=== PATIENT | female | born 1975 | race Caucasian/White ===

== ENCOUNTER 2016-06-28 04:11 | Inpatient (IN) | payer SELFPAY ==
[2016-06-28] VITALS (7 sets, daily range): BP systolic 111–169; BP diastolic 74–108; PULSE 77–111; RESP 16–18; TEMP 96.6–98.9; O2SAT 97–100
[~2016-06-28] VITALS: Ht 152.4 cm; Wt 62.3 kg
[~2016-06-28 04:11] MED LIST: CIPR250T52 PO; PANT40TA3 PO
[2016-06-28] MEDS ORDERED: SODIUM CHLOR 0.9% 1000 ML INJ 1,000 ML IV SCH (05:10)
[2016-06-28] MEDS ORDERED: SODIUM CHLORIDE 0.9% FLUSH 10 ML FLUSH IV FLUSH PRN ×2 (05:15→06:45)
[2016-06-28] MEDS ORDERED: ONDANSETRON HCL 4 MG/2 ML VIAL IVP ONE (05:15)
[2016-06-28] MEDS ORDERED: MORPHINE SULFATE 4 MG/ML INJ IV PUSH ONE (05:15)
[2016-06-28 05:27] LABS: AUTOMATED NEUTROPHIL # 11.7 TH/MM3 (1.8-7.7); BASOPHIL # 0.1 TH/MM3 (0-0.2); BASOPHIL % 0.6 % (0.0-2.0); EOSINOPHIL # 0.2 TH/MM3 (0-0.4); EOSINOPHIL % 1.5 % (0.0-4.0); HEMATOCRIT 37.8 % (35.0-46.0); HEMO FLAGS DIFF FINAL; LYMPH % 10.7 % (9.0-44.0); LYMPHOCYTE # 1.5 TH/MM3 (1.0-4.8); MEAN CELL VOLUME 91.6 FL (80.0-100.0); MEAN CORPUSCULAR HEMOGLOBIN 32.1 PG (27.0-34.0); MEAN CORPUSCULAR HGB CONC 35.1 % (32.0-36.0); NEUT % 81.2 % (16.0-70.0); PLATELET COUNT 389 TH/MM3 (150-450); RED BLOOD COUNT 4.13 MIL/MM3 (4.00-5.30); RED CELL DISTRIBUTION WIDTH 14.4 % (11.6-17.2); WHITE BLOOD COUNT 14.4 TH/MM3 (4.0-11.0)
[2016-06-28 05:48] LABS: APTT (PATIENT) 25.4 SEC (24.3-30.1); PROTHROMBIN TIME - PATIENT 11.4 SEC (9.8-11.6)
[2016-06-28 05:58] LABS: ALT (GPT) 20 U/L (10-53); ANION GAP 11 MEQ/L (5-15); AST (GOT) 18 U/L (15-37); BLOOD UREA NITROGEN 6 MG/DL (7-18); CHLORIDE 103 MEQ/L (98-107); GLOMERULAR FILTRATION RATE 98 ML/MIN (>89); POTASSIUM 3.5 MEQ/L (3.5-5.1); SODIUM (NA) 139 MEQ/L (136-145)
[2016-06-28 06:03] LABS: ALKALINE PHOSPHATASE 84 U/L (45-117); BETA HCG QUANT LESS THAN 1 MIU/ML (0-5); TOTAL BILIRUBIN ADULT 0.5 MG/DL (0.2-1.0)
[2016-06-28 06:05] LABS: CREATINE KINASE 71 U/L (26-192)
--- NOTE | 2016-06-28 06:05 | PD ---
HPI Chief Complaint: Abdominal Pain Time Seen by Provider: 04:59 Travel History International Travel<30 days: No Contact w/Intl Traveler<30days: No Traveled to known affect area: No History of Present Illness HPI 40-year-old female here for evaluation of epigastric abdominal pain. The patient reports history of pancreatitis and states that this feels similar. Pain started yesterday, is epigastric, radiates to her back. Pain was initially more constant, now is intermittent, slightly worse with movement and palpation. She describes the pain as an ache/feeling as though someone is punching her in her abdomen. Pain sort of radiates into her anterior chest. She drinks about 4-6 shots of whiskey daily and smokes cigarettes daily. She denies any known history of cardiac disease. She has felt nauseous but has not vomited. She has had loose bowel movements. No history of abdominal surgeries. No urinary symptoms. PFSH Past Medical History Anxiety: Yes Depression: Yes Heart Rhythm Problems: No Cancer: No Cardiovascular Problems: Yes High Cholesterol: No Chest Pain: Yes Congestive Heart Failure: No Diminished Hearing: No Endocrine: No GERD: Yes Genitourinary: No Hiatal Hernia: No Immune Disorder: No Musculoskeletal: No Neurologic: No Psychiatric: Yes Reproductive: No Respiratory: No Pancreatitis: Yes Ulcer: No Tetanus Vaccination: Unknown ?: Not LMP: 06/06/16 Past Surgical History Surgical History: No Previous Surgery Other Surgery: No Social History Alcohol Use: Yes (6-7 shots daily) Tobacco Use: Yes (1/2 PPD ) Substance Use: No Allergies-Medications (Allergen,Severity, Reaction): Coded Allergies: No Known Allergies (Unverified , 06/28/16) Reported Meds & Prescriptions Reported Meds & Active Scripts Active Cipro (Ciprofloxacin HCl) 250 Mg Tab 250 Mg PO BID 3 Days Pantoprazole (Pantoprazole Sodium) 40 Mg Tab 40 Mg PO DAILY 30 Days Review of Systems Except as stated in HPI: all other systems reviewed are Neg Physical Exam Narrative GENERAL: Well-developed, well-nourished, comfortable, no acute distress. SKIN: Focused skin assessment warm/dry. HEAD: Atraumatic. Normocephalic. EYES: Pupils equal and round. No scleral icterus. No injection or drainage. ENT: Mucous membranes pink and moist. NECK: Trachea midline. No JVD. CARDIOVASCULAR: Regular rate and rhythm. No murmur appreciated. RESPIRATORY: No accessory muscle use. Clear to auscultation. Breath sounds equal bilaterally. GASTROINTESTINAL: Abdomen soft, nondistended. Moderate epigastric tenderness without peritoneal signs. Rest of abdomen is mildly tender without peritoneal signs. Normal bowel sounds. No hernias. MUSCULOSKELETAL: No obvious deformities. No clubbing. No cyanosis. No edema. NEUROLOGICAL: Awake and alert. No obvious cranial nerve deficits. Motor grossly within normal limits. Normal speech. PSYCHIATRIC: Appropriate mood and affect; insight and judgment normal. Data Data Last Documented VS Vital Signs Date Time Temp Pulse Resp B/P Pulse Ox O2 Delivery O2 Flow Rate FiO2 06/28/16 06:28 16 06/28/16 04:22 98.5 111 166/108 100 Room Air Orders Beta Hcg (Quant/Titer) (06/28/16 05:10) Complete Blood Count With Diff (06/28/16 05:10) Comprehensive Metabolic Panel (06/28/16 05:10) Lipase (06/28/16 05:10) Prothrombin Time / Inr (Pt) (06/28/16 05:10) Act Partial Throm Time (Ptt) (06/28/16 05:10) Urinalysis - C+S If Indicated (06/28/16 05:10) Iv Access Insert/Monitor (06/28/16 05:10) Ecg Monitoring (06/28/16 05:10) Oximetry (06/28/16 05:10) Morphine Inj (Morphine Inj) (06/28/16 05:15) Ondansetron Inj (Zofran Inj) (06/28/16 05:15) Sodium Chlor 0.9% 1000 Ml Inj (Ns 1000 M (06/28/16 05:10) Sodium Chloride 0.9% Flush (Ns Flush) (06/28/16 05:15) Electrocardiogram (06/28/16 05:10) Ckmb (Isoenzyme) Profile (06/28/16 05:10) Troponin I (06/28/16 05:10) Sodium Chlor 0.9% 1000 Ml Inj (Ns 1000 M (06/28/16 06:30) Admit To Inpatient (06/28/16 ) Vital Signs (Adult) Q4H (06/28/16 06:36) Activity Oob With Assistance (06/28/16 06:36) Supervisor Electron Tube Processing / Telemetry .CONTINUOUS (06/28/16 06:36) Diet Clear Liquid (06/28/16 Breakfast) Sodium Chlor 0.9% 1000 Ml Inj (Ns 1000 M (06/28/16 06:36) Sodium Chloride 0.9% Flush (Ns Flush) (06/28/16 06:45) Sodium Chloride 0.9% Flush (Ns Flush) (06/28/16 09:00) Ondansetron Inj (Zofran Inj) (06/28/16 06:45) Comprehensive Metabolic Panel (06/29/16 06:00) Complete Blood Count With Diff (06/29/16 06:00) Lipase (06/29/16 06:00) Naloxone Inj (Narcan Inj) (06/28/16 06:45) Inpatient Certification (06/28/16 ) Labs Laboratory Tests Test 06/28/16 06/28/16 05:15 05:45 White Blood Count 14.4 TH/MM3 Red Blood Count 4.13 MIL/MM3 Hemoglobin 13.3 GM/DL Hematocrit 37.8 % Mean Corpuscular Volume 91.6 FL Mean Corpuscular Hemoglobin 32.1 PG Mean Corpuscular Hemoglobin 35.1 % Concent Red Cell Distribution Width 14.4 % Platelet Count 389 TH/MM3 Mean Platelet Volume 7.2 FL Neutrophils (%) (Auto) 81.2 % Lymphocytes (%) (Auto) 10.7 % Monocytes (%) (Auto) 6.0 % Eosinophils (%) (Auto) 1.5 % Basophils (%) (Auto) 0.6 % Neutrophils # (Auto) 11.7 TH/MM3 Lymphocytes # (Auto) 1.5 TH/MM3 Monocytes # (Auto) 0.9 TH/MM3 Eosinophils # (Auto) 0.2 TH/MM3 Basophils # (Auto) 0.1 TH/MM3 CBC Comment DIFF FINAL Differential Comment Prothrombin Time 11.4 SEC Prothromb Time International 1.0 RATIO Ratio Activated Partial 25.4 SEC Thromboplast Time Sodium Level 139 MEQ/L Potassium Level 3.5 MEQ/L Chloride Level 103 MEQ/L Carbon Dioxide Level 25.0 MEQ/L Anion Gap 11 MEQ/L Blood Urea Nitrogen 6 MG/DL Creatinine 0.67 MG/DL Estimat Glomerular Filtration 98 ML/MIN Rate Random Glucose 98 MG/DL Calcium Level 8.7 MG/DL Total Bilirubin 0.5 MG/DL Aspartate Amino Transf 18 U/L (AST/SGOT) Alanine Aminotransferase 20 U/L (ALT/SGPT) Alkaline Phosphatase 84 U/L Total Creatine Kinase 71 U/L Troponin I LESS THAN 0.02 NG/ML Total Protein 7.6 GM/DL Albumin 3.9 GM/DL Lipase 5308 U/L Human Chorionic Gonadotropin, LESS THAN 1 Quant MIU/ML Urine Color LIGHT-YELLOW Urine Turbidity CLEAR Urine pH 6.0 Urine Specific [place] 1.006 Urine Protein NEG mg/dL Urine Glucose (UA) NEG mg/dL Urine Ketones NEG mg/dL Urine Occult Blood SMALL Urine Nitrite NEG Urine Bilirubin NEG Urine Urobilinogen LESS THAN 2.0 MG/DL Urine Leukocyte Esterase SMALL Urine RBC 4 /hpf Urine WBC 3 /hpf Urine Squamous Epithelial 2 /hpf Cells Urine Bacteria RARE /hpf Microscopic Urinalysis Comment CULT NOT INDICATED MDM Medical Decision Making Medical Screen Exam Complete: Yes Emergency Medical Condition: Yes Differential Diagnosis Pancreatitis, hepatobiliary disease, gastritis, peptic ulcer disease, ACS Narrative Course Vital signs reviewed. CBC is remarkable for WBC 14.4 with 81% neutrophils. CMP is unremarkable. Cardiac enzymes are negative. Beta hCG is negative. Lipase is 5308. UA is not suggestive of UTI. EKG shows no signs of ischemia. The patient was given 2 L normal saline IV and IV pain medication. She is resting comfortably. She was made aware of all findings. She will be admitted for further treatment and evaluation of acute pancreatitis which is likely secondary to alcohol abuse. Case discussed with hospitalist Dr. Godoy who will admit the patient to her service. Diagnosis Primary Impression: Pancreatitis, acute Qualified Code: K85.20 - Alcohol-induced acute pancreatitis, unspecified complication status Additional Impression: Alcohol abuse Admitting Information Admitting Physician Requests: Admit Anand Caery MD June 28, 2016 06:05
[2016-06-28 06:18] LABS: BACTERIA, URINE RARE /hpf; BLOOD, URINE SMALL (NEG); GLUCOSE,URINE NEG (NEG); KETONE, URINE NEG (NEG); NITRITE,URINE NEG (NEG); SQUAMOUS EPITHELIAL CELL URINE 2 /hpf (0-5); URINE COLOR LIGHT-YELLOW (YELLW/STRAW)
[2016-06-28 06:19] LABS: COMMENT (UR) CULT NOT INDICATED; CULTURE IF INDICATED CULT NOT INDICATED
[2016-06-28] MEDS ORDERED: SODIUM CHLOR 0.9% 1000 ML INJ 1,000 ML IV ONE (06:30)
[2016-06-28] MEDS ORDERED: ONDANSETRON HCL 4 MG/2 ML VIAL IVP PRN (06:45)
[2016-06-28] MEDS ORDERED: NALOXONE HCL 0.4 MG/ML AMP IV PRN (06:45)
--- NOTE | 2016-06-28 06:55 | HHI.HP ---
[facility] Service [place] [facility] Primary Care Physician Unknown Admission Diagnosis acute pancreatitis Diagnoses: Chief Complaint: Abdominal pain Travel History International Travel<30 Days: No Contact w/Intl Traveler <30 Da: No Traveled to Known Affected Are: No History of Present Illness History from patient, ER physician communication, and review of medical records. Patient reported that she came to the hospital because she was having midepigastric pain radiating to the back it started about 2 days ago. She reports that she had to leave work earlier yesterday because of this. She reports associated nausea and vomited once or twice. Also reports of diarrhea throughout the week at least 10-12 times a day. Diarrhea is greenish in color. Denies recent antibiotic use. Denies fever. However reports of some night sweats. Denies any burning urination or pain on urination. Patient denies any hematemesis/hematochezia/melena. Denies any chest pain/shortness of breath/focal weakness. patient is known to me from her prior hospitalization. She presented similarly at that time as well with chronic diarrhea. Her stool studies were negative then. The patient was managed at that time for acute pancreatitis. Patient admits that she is still drinking about 6 whiskeys a night. Review of Systems Except as stated in HPI: all other systems reviewed are Neg Past Family Social History Past Medical History pancreatitis Past Surgical History no surgery Allergies: Coded Allergies: No Known Allergies (Unverified , 06/28/16) Family History grandfather - cirrhosis of liver Social History smokes less than 10 cigarrettes a day drinks 6 whiskys a day Physical Exam Vital Signs Vital Signs Date Time Temp Pulse Resp B/P Pulse Ox O2 Delivery O2 Flow Rate FiO2 06/28/16 06:28 16 06/28/16 04:22 98.5 111 16 166/108 100 Room Air Physical Exam GENERAL: This is a well-nourished, well-developed patient, in no apparent distress. SKIN: No rashes, ecchymoses or lesions. Cool and dry. HEAD: Atraumatic. Normocephalic. No temporal or scalp tenderness. EYES: No scleral icterus. No injection or drainage. ENT: Nose without bleeding, purulent drainage or septal hematoma. Airway patent. NECK: Trachea midline. No JVD. Supple, nontender, no meningeal signs. CARDIOVASCULAR: Regular rate and rhythm without murmurs, gallops, or rubs. RESPIRATORY: Clear to auscultation. Breath sounds equal bilaterally. No wheezes , rales, or rhonchi. GASTROINTESTINAL: Abdomen soft, tenderness at mid epigastrium, nondistended.No guarding. MUSCULOSKELETAL: Extremities without clubbing, cyanosis, or edema.No calf tenderness. NEUROLOGICAL: Awake and alert. Motor and sensory grossly within normal limits. Normal speech. Laboratory Laboratory Tests Test 06/28/16 06/28/16 05:15 05:45 White Blood Count 14.4 Red Blood Count 4.13 Hemoglobin 13.3 Hematocrit 37.8 Mean Corpuscular Volume 91.6 Mean Corpuscular Hemoglobin 32.1 Mean Corpuscular Hemoglobin 35.1 Concent Red Cell Distribution Width 14.4 Platelet Count 389 Mean Platelet Volume 7.2 Neutrophils (%) (Auto) 81.2 Lymphocytes (%) (Auto) 10.7 Monocytes (%) (Auto) 6.0 Eosinophils (%) (Auto) 1.5 Basophils (%) (Auto) 0.6 Neutrophils # (Auto) 11.7 Lymphocytes # (Auto) 1.5 Monocytes # (Auto) 0.9 Eosinophils # (Auto) 0.2 Basophils # (Auto) 0.1 CBC Comment DIFF FINAL Differential Comment Prothrombin Time 11.4 Prothromb Time International 1.0 Ratio Activated Partial 25.4 Thromboplast Time Sodium Level 139 Potassium Level 3.5 Chloride Level 103 Carbon Dioxide Level 25.0 Anion Gap 11 Blood Urea Nitrogen 6 Creatinine 0.67 Estimat Glomerular Filtration 98 Rate Random Glucose 98 Calcium Level 8.7 Total Bilirubin 0.5 Aspartate Amino Transf 18 (AST/SGOT) Alanine Aminotransferase 20 (ALT/SGPT) Alkaline Phosphatase 84 Total Creatine Kinase 71 Troponin I LESS THAN 0.02 Total Protein 7.6 Albumin 3.9 Lipase 5308 Human Chorionic Gonadotropin, LESS THAN 1 Quant Urine Color LIGHT-YELLOW Urine Turbidity CLEAR Urine pH 6.0 Urine Specific [place] 1.006 Urine Protein NEG Urine Glucose (UA) NEG Urine Ketones NEG Urine Occult Blood SMALL Urine Nitrite NEG Urine Bilirubin NEG Urine Urobilinogen LESS THAN 2.0 Urine Leukocyte Esterase SMALL Urine RBC 4 Urine WBC 3 Urine Squamous Epithelial 2 Cells Urine Bacteria RARE Microscopic Urinalysis Comment CULT NOT INDICATED Result Diagram: 06/28/1651406/28/16514 Assessment and Plan Assessment and Plan Impression: Acute pancreatitis Nausea/vomiting/diarrheaall secondary to pancreatitis EtOH abuse Elevated blood pressuresecondary to pain/withdrawal Plan: Aggressive IV hydration. Clear liquid diet. Pain control. Nausea control. We'll monitor for episodes of nausea/vomiting/diarrhea. Ativan 1 mg IV every 2 hours when necessary for withdrawal symptoms. Started on Librium 25 mg by mouth every 8 hours. DVT prophylaxiswith SCD. GI prophylaxis on pantoprazole. Physician Certification 2 Midnight Certification Type: Admission for Inpatient Services Order for Inpatient Services The services are ordered in accordance with Medicare regulations or non- Medicare payer requirements, as applicable. In the case of services not specified as inpatient-only, they are appropriately provided as inpatient services in accordance with the 2-midnight benchmark. Estimated LOS (days): 2 days is the estimated time the patient will need to remain in the hospital, assuming treatment plan goals are met and no additional complications. Post-Hospital Plan: Home Maria M Godoy MD June 28, 2016 06:55
[2016-06-28] MEDS ORDERED: LORazepam 2 MG/ML VIAL IV PUSH PRN (07:30)
[2016-06-28] MEDS: PANTOPRAZOLE SOD 40 MG DELAYED RELEASE TAB PO SCH (11:11)
[2016-06-28] MEDS: THIAMINE HCL 100 MG TAB PO SCH (11:11)
[2016-06-28] MEDS: chlordiazePOXIDE 25 MG CAP PO SCH ×3 (11:11→20:13)
[2016-06-28] MEDS: SODIUM CHLORIDE 0.9% FLUSH 10 ML FLUSH IV FLUSH SCH ×2 (11:12→20:13)
[2016-06-28] MEDS: MORPHINE SULFATE 4 MG/ML INJ IV PUSH PRN ×3 (11:21→20:13)
--- NOTE | 2016-06-28 18:32 | EKG ---
Date Performed: 06/28/2016 Time Performed: 05:19:19 PTAGE: 40 years EKG: Sinus rhythm NORMAL ECG Compared to prior tracing no significant change PREVIOUS TRACING : 12/24/2015 20.21 DOCTOR: Domingo Astudillo Interpretating Date/Time 06/28/2016 18:28:20
[2016-06-28] MEDS: SODIUM CHLOR 0.9% 1000 ML INJ 1,000 ML IV SCH (23:01)
[2016-06-29] VITALS: BP 109/62; PULSE 81; RESP 18; TEMP 98.1; O2SAT 97
[2016-06-29 04:00] VITALS: BP 113/70; PULSE 80; RESP 18; TEMP 97.3; O2SAT 97
[2016-06-29] MEDS: chlordiazePOXIDE 25 MG CAP PO SCH ×3 (04:57→21:53)
[2016-06-29 06:09] LABS: AUTOMATED NEUTROPHIL # 4.7 TH/MM3 (1.8-7.7); BASOPHIL % 0.7 % (0.0-2.0); EOSINOPHIL # 0.3 TH/MM3 (0-0.4); HEMATOCRIT 33.2 % (35.0-46.0); HEMO FLAGS DIFF FINAL; LYMPH % 20.6 % (9.0-44.0); LYMPHOCYTE # 1.5 TH/MM3 (1.0-4.8); MEAN CELL VOLUME 92.2 FL (80.0-100.0); MEAN CORPUSCULAR HEMOGLOBIN 31.6 PG (27.0-34.0); MEAN CORPUSCULAR HGB CONC 34.2 % (32.0-36.0); MONO % 8.4 % (0.0-8.0); NEUT % 66.3 % (16.0-70.0); PLATELET COUNT 325 TH/MM3 (150-450); RED CELL DISTRIBUTION WIDTH 14.4 % (11.6-17.2); WHITE BLOOD COUNT 7.2 TH/MM3 (4.0-11.0)
[2016-06-29 06:36] LABS: ALKALINE PHOSPHATASE 71 U/L (45-117); ALT (GPT) 14 U/L (10-53); ANION GAP 8 MEQ/L (5-15); AST (GOT) 16 U/L (15-37); BICARBONATE 26.1 MEQ/L (21.0-32.0); BLOOD UREA NITROGEN 3 MG/DL (7-18); CHLORIDE 106 MEQ/L (98-107); GLOMERULAR FILTRATION RATE 141 ML/MIN (>89); SODIUM (NA) 140 MEQ/L (136-145); TOTAL BILIRUBIN ADULT 0.9 MG/DL (0.2-1.0)
[2016-06-29 06:43] LABS: POTASSIUM 2.8 MEQ/L (3.5-5.1)
[2016-06-29 08:00] VITALS: BP 117/73; PULSE 83; RESP 16; TEMP 97.5; O2SAT 99
[2016-06-29] MEDS: THIAMINE HCL 100 MG TAB PO SCH (08:14)
[2016-06-29] MEDS: PANTOPRAZOLE SOD 40 MG DELAYED RELEASE TAB PO SCH (08:14)
[2016-06-29] MEDS: SODIUM CHLORIDE 0.9% FLUSH 10 ML FLUSH IV FLUSH SCH ×2 (08:14→21:53)
[2016-06-29] MEDS: POTASSIUM CHLOR 20 MEQ PREMIX 100 ML IV SCH ×2 (08:21→12:30)
[2016-06-29] MEDS: MORPHINE SULFATE 4 MG/ML INJ IV PUSH PRN (08:30)
--- NOTE | 2016-06-29 08:58 | HHI.PR ---
Subjective Remarks This is a pleasant 40 y/o Female who came to ER with Abdominal pain, found Acute Pancreatitis, Improving and tolerating diet, has Hypokalemia replacing and following. brief support given about her Alcohol abuse and dependence. Objective Vital Signs Date Time Temp Pulse Resp B/P Pulse Ox O2 Delivery O2 Flow Rate FiO2 06/29/16 08:00 97.5 83 16 117/73 99 06/29/16 04:00 97.3 80 18 113/70 97 06/29/16 00:00 98.1 81 18 109/62 97 06/28/16 22:00 77 06/28/16 20:00 98.9 77 18 111/74 97 06/28/16 16:00 96.9 84 17 128/78 99 06/28/16 12:00 96.6 82 17 137/90 97 06/28/16 09:00 97.7 87 16 98 I/O 06/28/16 06/28/16 06/28/16 06/29/16 06/29/16 06/29/16 07:00 15:00 23:00 07:00 15:00 23:00 Intake Total 120 ml 752 ml 1061 ml Output Total 1200 ml Balance 120 ml 752 ml -139 ml Intake Oral 120 ml 320 ml 480 ml IV Total 432 ml 581 ml Output Urine Total 1200 ml # Voids 1 1 # Bowel Movements 0 0 0 Result Diagram: 06/29/16 0548 06/29/16 0548 Imaging No New Imaging studies performed. Procedures No procedures performed. Other Results Laboratory Tests Test 06/28/16 06/28/16 06/29/16 05:15 05:45 05:48 Prothrombin Time 11.4 SEC Prothromb Time International 1.0 RATIO Ratio Activated Partial 25.4 SEC Thromboplast Time Total Creatine Kinase 71 U/L Troponin I LESS THAN 0.02 NG/ML Human Chorionic Gonadotropin, LESS THAN 1 Quant MIU/ML Urine Color LIGHT-YELLOW Urine Turbidity CLEAR Urine pH 6.0 Urine Specific [place] 1.006 Urine Protein NEG mg/dL Urine Glucose (UA) NEG mg/dL Urine Ketones NEG mg/dL Urine Occult Blood SMALL Urine Nitrite NEG Urine Bilirubin NEG Urine Urobilinogen LESS THAN 2.0 MG/DL Urine Leukocyte Esterase SMALL Urine RBC 4 /hpf Urine WBC 3 /hpf Urine Squamous Epithelial 2 /hpf Cells Urine Bacteria RARE /hpf Microscopic Urinalysis Comment CULT NOT INDICATED White Blood Count 7.2 TH/MM3 Red Blood Count 3.60 MIL/MM3 Hemoglobin 11.4 GM/DL Hematocrit 33.2 % Mean Corpuscular Volume 92.2 FL Mean Corpuscular Hemoglobin 31.6 PG Mean Corpuscular Hemoglobin 34.2 % Concent Red Cell Distribution Width 14.4 % Platelet Count 325 TH/MM3 Mean Platelet Volume 7.2 FL Neutrophils (%) (Auto) 66.3 % Lymphocytes (%) (Auto) 20.6 % Monocytes (%) (Auto) 8.4 % Eosinophils (%) (Auto) 4.0 % Basophils (%) (Auto) 0.7 % Neutrophils # (Auto) 4.7 TH/MM3 Lymphocytes # (Auto) 1.5 TH/MM3 Monocytes # (Auto) 0.6 TH/MM3 Eosinophils # (Auto) 0.3 TH/MM3 Basophils # (Auto) 0.0 TH/MM3 CBC Comment DIFF FINAL Differential Comment Sodium Level 140 MEQ/L Potassium Level 2.8 MEQ/L Chloride Level 106 MEQ/L Carbon Dioxide Level 26.1 MEQ/L Anion Gap 8 MEQ/L Blood Urea Nitrogen 3 MG/DL Creatinine 0.49 MG/DL Estimat Glomerular Filtration 141 ML/MIN Rate Random Glucose 88 MG/DL Calcium Level 7.5 MG/DL Total Bilirubin 0.9 MG/DL Aspartate Amino Transf 16 U/L (AST/SGOT) Alanine Aminotransferase 14 U/L (ALT/SGPT) Alkaline Phosphatase 71 U/L Total Protein 6.2 GM/DL Albumin 3.0 GM/DL Lipase 278 U/L Objective Remarks GENERAL: This is a well-nourished, well-developed patient, in no apparent distress. SKIN: No rashes, ecchymoses or lesions. Cool and dry. HEAD: Atraumatic. Normocephalic. No temporal or scalp tenderness. EYES: No scleral icterus. No injection or drainage. ENT: Nose without bleeding, purulent drainage or septal hematoma. Airway patent. NECK: Trachea midline. No JVD. Supple, nontender, no meningeal signs. CARDIOVASCULAR: Regular rate and rhythm without murmurs, gallops, or rubs. RESPIRATORY: Clear to auscultation. Breath sounds equal bilaterally. No wheezes , rales, or rhonchi. GASTROINTESTINAL: Abdomen soft, tenderness at mid epigastrium, nondistended.No guarding. MUSCULOSKELETAL: Extremities without clubbing, cyanosis, or edema.No calf tenderness. NEUROLOGICAL: Awake and alert. Motor and sensory grossly within normal limits. Normal speech. Medications and IVs Current Medications Medications (Trade) Dose Ordered Sig/[place] Route Start Time Stop Time Status Last Admin Sodium Chloride 2 ml 2 ml UNSCH PRN IV FLUSH 06/28/16 05:15 (NS 1000 ml Inj) 1,000 ml @ 100 mls/hr Q10H IV 06/28/16 07:00 06/28/16 23:01 (NS Flush) 2 ml UNSCH PRN IV FLUSH 06/28/16 06:45 (NS Flush) 2 ml BID IV FLUSH 06/28/16 09:00 06/29/16 08:14 (Zofran Inj) 4 mg Q6H PRN IVP 06/28/16 06:45 (Narcan Inj) 0.4 mg UNSCH PRN IV 06/28/16 06:45 (Morphine Inj) 2 mg Q3H PRN IV PUSH 06/28/16 06:45 06/29/16 08:30 (Vitamin B1) 100 mg DAILY PO 06/28/16 09:00 06/29/16 08:14 (Ativan Inj) 1 mg Q2H PRN IV PUSH 06/28/16 07:30 (Protonix) 40 mg DAILY PO 06/28/16 09:00 06/29/16 08:14 Chlordiazepoxide 25 mg 25 mg Q8HR PO 06/28/16 22:00 06/29/16 04:57 (KCl 20 Meq Premix Inj) 100 ml @ 50 mls/hr Q2H IV 06/29/16 08:00 06/29/16 11:59 06/29/16 08:21 A/P Assessment and Plan 1. Acute Pancreatitis and Intractable Nausea, vomit and Diarrhea secondary to EtOH abuse Improved. 2. Alcohol abuse on CIWA protocol. no signs of withdrawal 3. Electrolyte derangement replacing, DVT prophylaxiswith SCD. GI prophylaxis on pantoprazole. Discharge Planning Expected later today or in am tomorrow. Andrez Cm MD June 29, 2016 08:58
[2016-06-29 11:47] LABS: MAGNESIUM 1.6 MG/DL (1.5-2.5)
[2016-06-29 12:00] VITALS: BP 134/81; PULSE 80; RESP 13; TEMP 98.1; O2SAT 99
[2016-06-29] MEDS: SODIUM CHLOR 0.9% 1000 ML INJ 1,000 ML IV SCH ×2 (13:00→21:53)
[2016-06-29] MEDS: MAGNESIUM SULFATE 1 GM PREMIX 100 ML IV SCH ×2 (13:30→13:53)
[2016-06-29 16:00] VITALS: BP 98/57; PULSE 90; RESP 16; TEMP 97.9; O2SAT 97
[2016-06-29 20:00] VITALS: BP 105/61; PULSE 92; PULSE 94; RESP 20; TEMP 97.2; O2SAT 99
[2016-06-29] MEDS: ACETAMINOPHEN/HYDROcodone 325 MG/5 MG TAB PO PRN (21:54)
[2016-06-30] VITALS: BP 116/70; PULSE 88; RESP 18; TEMP 98; O2SAT 100
[2016-06-30 04:00] VITALS: BP 110/68; PULSE 84; RESP 20; TEMP 97.8; O2SAT 98
[2016-06-30] MEDS: chlordiazePOXIDE 25 MG CAP PO SCH (04:56)
[2016-06-30 08:00] VITALS: BP 149/92; PULSE 77; RESP 17; TEMP 97.2; O2SAT 99
[2016-06-30] MEDS: PANTOPRAZOLE SOD 40 MG DELAYED RELEASE TAB PO SCH (09:00)
[2016-06-30] MEDS: THIAMINE HCL 100 MG TAB PO SCH (09:00)
--- NOTE | 2016-06-30 09:19 | HHI.PR ---
Subjective Remarks This is a pleasant 40 y/o Female who came to ER with Abdominal pain, found Acute Pancreatitis, Improving and tolerating diet, has Hypokalemia replacing and following. brief support given about her Alcohol abuse and dependence. 06/30: No Nausea, vomit or diarrhea, stable, ready for discharge will replace her Potassium level again discussed about her lifestyle. she agree to start taking care of her. Objective Vital Signs Date Time Temp Pulse Resp B/P Pulse Ox O2 Delivery O2 Flow Rate FiO2 06/30/16 08:00 97.2 77 17 149/92 99 06/30/16 04:00 97.8 84 20 110/68 98 06/30/16 00:00 98.0 88 18 116/70 100 06/29/16 20:00 94 06/29/16 20:00 97.2 92 20 105/61 99 06/29/16 16:00 97.9 90 16 98/57 97 06/29/16 12:00 98.1 80 13 134/81 99 I/O 06/29/16 06/29/16 06/29/16 06/30/16 06/30/16 06/30/16 07:00 15:00 23:00 07:00 15:00 23:00 Intake Total 1061 ml 600 ml 758 ml 995 ml Output Total 1200 ml 640 ml Balance -139 ml 600 ml 758 ml 355 ml Intake Oral 480 ml 600 ml 240 ml IV Total 581 ml 758 ml 755 ml Output Urine Total 1200 ml 640 ml # Voids 5 # Bowel Movements 0 0 0 Result Diagram: 06/29/16 0548 06/29/16 1742 Imaging No Imaging studies performed. Procedures No procedures performed. Other Results Laboratory Tests Test 06/28/16 06/28/16 06/29/16 06/29/16 05:15 05:45 05:48 17:42 Prothrombin Time 11.4 SEC Prothromb Time International 1.0 RATIO Ratio Activated Partial 25.4 SEC Thromboplast Time Total Creatine Kinase 71 U/L Troponin I LESS THAN 0.02 NG/ML Human Chorionic Gonadotropin, LESS THAN 1 Quant MIU/ML Urine Color LIGHT-YELLOW Urine Turbidity CLEAR Urine pH 6.0 Urine Specific [place] 1.006 Urine Protein NEG mg/dL Urine Glucose (UA) NEG mg/dL Urine Ketones NEG mg/dL Urine Occult Blood SMALL Urine Nitrite NEG Urine Bilirubin NEG Urine Urobilinogen LESS THAN 2.0 MG/DL Urine Leukocyte Esterase SMALL Urine RBC 4 /hpf Urine WBC 3 /hpf Urine Squamous Epithelial 2 /hpf Cells Urine Bacteria RARE /hpf Microscopic Urinalysis Comment CULT NOT INDICATED White Blood Count 7.2 TH/MM3 Red Blood Count 3.60 MIL/MM3 Hemoglobin 11.4 GM/DL Hematocrit 33.2 % Mean Corpuscular Volume 92.2 FL Mean Corpuscular Hemoglobin 31.6 PG Mean Corpuscular Hemoglobin 34.2 % Concent Red Cell Distribution Width 14.4 % Platelet Count 325 TH/MM3 Mean Platelet Volume 7.2 FL Neutrophils (%) (Auto) 66.3 % Lymphocytes (%) (Auto) 20.6 % Monocytes (%) (Auto) 8.4 % Eosinophils (%) (Auto) 4.0 % Basophils (%) (Auto) 0.7 % Neutrophils # (Auto) 4.7 TH/MM3 Lymphocytes # (Auto) 1.5 TH/MM3 Monocytes # (Auto) 0.6 TH/MM3 Eosinophils # (Auto) 0.3 TH/MM3 Basophils # (Auto) 0.0 TH/MM3 CBC Comment DIFF FINAL Differential Comment Sodium Level 140 MEQ/L Chloride Level 106 MEQ/L Carbon Dioxide Level 26.1 MEQ/L Anion Gap 8 MEQ/L Blood Urea Nitrogen 3 MG/DL Creatinine 0.49 MG/DL Estimat Glomerular Filtration 141 ML/MIN Rate Random Glucose 88 MG/DL Calcium Level 7.5 MG/DL Phosphorus Level 2.2 MG/DL Magnesium Level 1.6 MG/DL Total Bilirubin 0.9 MG/DL Aspartate Amino Transf 16 U/L (AST/SGOT) Alanine Aminotransferase 14 U/L (ALT/SGPT) Alkaline Phosphatase 71 U/L Total Protein 6.2 GM/DL Albumin 3.0 GM/DL Lipase 278 U/L Potassium Level 3.5 MEQ/L Objective Remarks GENERAL: This is a well-nourished, well-developed patient, in no apparent distress. SKIN: No rashes, ecchymoses or lesions. Cool and dry. HEAD: Atraumatic. Normocephalic. No temporal or scalp tenderness. EYES: No scleral icterus. No injection or drainage. ENT: Nose without bleeding, purulent drainage or septal hematoma. Airway patent. NECK: Trachea midline. No JVD. Supple, nontender, no meningeal signs. CARDIOVASCULAR: Regular rate and rhythm without murmurs, gallops, or rubs. RESPIRATORY: Clear to auscultation. Breath sounds equal bilaterally. No wheezes , rales, or rhonchi. GASTROINTESTINAL: Abdomen soft, tenderness at mid epigastrium, nondistended.No guarding. MUSCULOSKELETAL: Extremities without clubbing, cyanosis, or edema.No calf tenderness. NEUROLOGICAL: Awake and alert. Motor and sensory grossly within normal limits. Normal speech. Medications and IVs Current Medications Medications (Trade) Dose Ordered Sig/[place] Route Start Time Stop Time Status Last Admin (NS 1000 ml Inj) 1,000 ml @ 100 mls/hr Q10H IV 06/28/16 07:00 06/29/16 21:53 (NS Flush) 2 ml UNSCH PRN IV FLUSH 06/28/16 06:45 (NS Flush) 2 ml BID IV FLUSH 06/28/16 09:00 06/29/16 21:53 (Zofran Inj) 4 mg Q6H PRN IVP 06/28/16 06:45 (Narcan Inj) 0.4 mg UNSCH PRN IV 06/28/16 06:45 (Vitamin B1) 100 mg DAILY PO 06/28/16 09:00 06/29/16 08:14 (Ativan Inj) 1 mg Q2H PRN IV PUSH 06/28/16 07:30 (Protonix) 40 mg DAILY PO 06/28/16 09:00 06/29/16 08:14 (Librium) 25 mg Q8HR PO 06/28/16 22:00 06/30/16 04:56 ([place] 5-325 Mg) 1 tab Q6H PRN PO 06/29/16 12:30 06/29/16 21:54 A/P Assessment and Plan 1. Acute Pancreatitis and Intractable Nausea, vomit and Diarrhea secondary to EtOH abuse Improved. 2. Alcohol abuse on CIWA protocol. no signs of withdrawal 3. Electrolyte derangement replaced DVT prophylaxiswith SCD. GI prophylaxis on pantoprazole. Discharge Planning Discharge Home Andrez Cm MD June 30, 2016 09:19
[2016-06-30] MEDS ORDERED: POTASSIUM CHLORIDE 20 MEQ CONTROLLED RELEASE TAB PO ONE (09:30)
[2016-06-30] MEDS ORDERED: VITA100T2 PO (09:47)
[2016-06-30] MEDS ORDERED: FOLI1TAB4 PO (09:47)
--- NOTE | 2016-06-30 09:50 | HHI.DS ---
Discharge Summary Admission Date June 28, 2016 at 06:40 Discharge Date: June 30, 2016 Admitting Diagnosis acute pancreatitis (1) Pancreatitis, acute ICD Code: K85.9 Diagnosis: Principal (2) Tobacco abuse ICD Code: Z72.0 Diagnosis: Principal (3) Alcohol abuse ICD Code: F10.10 Diagnosis: Principal Procedures No procedures performed. Brief History - From Admission History from patient, ER physician communication, and review of medical records. Patient reported that she came to the hospital because she was having midepigastric pain radiating to the back it started about 2 days ago. She reports that she had to leave work earlier yesterday because of this. She reports associated nausea and vomited once or twice. Also reports of diarrhea throughout the week at least 10-12 times a day. Diarrhea is greenish in color. Denies recent antibiotic use. Denies fever. However reports of some night sweats. Denies any burning urination or pain on urination. Patient denies any hematemesis/hematochezia/melena. Denies any chest pain/shortness of breath/focal weakness. patient is known to me from her prior hospitalization. She presented similarly at that time as well with chronic diarrhea. Her stool studies were negative then. The patient was managed at that time for acute pancreatitis. Patient admits that she is still drinking about 6 whiskeys a night. CBC/BMP: 06/29/16 0548 06/29/16 1742 Significant Findings Laboratory Tests Test 06/28/16 06/28/16 06/29/16 05:15 05:45 05:48 White Blood Count 14.4 TH/MM3 (4.0-11.0) Neutrophils (%) (Auto) 81.2 % (16.0-70.0) Neutrophils # (Auto) 11.7 TH/MM3 (1.8-7.7) Blood Urea Nitrogen 6 MG/DL (7-18) 3 MG/DL (7-18) Troponin I LESS THAN 0.02 NG/ML (0.02-0.05) Lipase 5308 U/L (73-393) Urine Occult Blood SMALL (NEG) Urine Leukocyte Esterase SMALL (NEG) Urine RBC 4 /hpf (0-3) Urine Bacteria RARE /hpf (NONE) Red Blood Count 3.60 MIL/MM3 (4.00-5.30) Hemoglobin 11.4 GM/DL (11.6-15.3) Hematocrit 33.2 % (35.0-46.0) Monocytes (%) (Auto) 8.4 % (0.0-8.0) Potassium Level 2.8 MEQ/L (3.5-5.1) Creatinine 0.49 MG/DL (0.50-1.00) Calcium Level 7.5 MG/DL (8.5-10.1) Phosphorus Level 2.2 MG/DL (2.5-4.9) Total Protein 6.2 GM/DL (6.4-8.2) Albumin 3.0 GM/DL (3.4-5.0) Imaging No Imaging studies performed. PE at Discharge GENERAL: This is a well-nourished, well-developed patient, in no apparent distress. SKIN: No rashes, ecchymoses or lesions. Cool and dry. HEAD: Atraumatic. Normocephalic. No temporal or scalp tenderness. EYES: No scleral icterus. No injection or drainage. ENT: Nose without bleeding, purulent drainage or septal hematoma. Airway patent. NECK: Trachea midline. No JVD. Supple, nontender, no meningeal signs. CARDIOVASCULAR: Regular rate and rhythm without murmurs, gallops, or rubs. RESPIRATORY: Clear to auscultation. Breath sounds equal bilaterally. No wheezes , rales, or rhonchi. GASTROINTESTINAL: Abdomen soft, tenderness at mid epigastrium, nondistended.No guarding. MUSCULOSKELETAL: Extremities without clubbing, cyanosis, or edema.No calf tenderness. NEUROLOGICAL: Awake and alert. Motor and sensory grossly within normal limits. Normal speech Hospital Course This is a pleasant 40 y/o Female who came to ER with Abdominal pain, found Acute Pancreatitis, Improving and tolerating diet, has Hypokalemia replacing and following. brief support given about her Alcohol abuse and dependence. 06/30: No Nausea, vomit or diarrhea, stable, ready for discharge will replace her Potassium level again discussed about her lifestyle. she agree to start taking care of her. Assessment and Plan 1. Acute Pancreatitis and Intractable Nausea, vomit and Diarrhea secondary to EtOH abuse Improved. 2. Alcohol abuse on CIWA protocol. no signs of withdrawal 3. Electrolyte derangement replaced DVT prophylaxiswith SCD. GI prophylaxis on pantoprazole. Discharge Planning Discharge Home Pt Condition on Discharge: Good Discharge Disposition: Discharge Home Discharge Time: <= 30 minutes Discharge Instructions DIET: Follow Instructions for: As Tolerated, No Restrictions Activities you can perform: Regular-No Restrictions Andrez Cm MD June 30, 2016 09:50
[2016-06-30] MEDS: ACETAMINOPHEN/HYDROcodone 325 MG/5 MG TAB PO PRN (10:03)
== END 2016-06-30 11:18 | disposition home or self-care (01) | DRG 440 ==
LOC: NEPC 04:11 → NEDA 06:40 → N07A 08:45
PROVIDERS: ADMIT Internal Medicine; ATTEND Internal Medicine
DX: K85.20 Alcohol induced acute pancreatitis without necrosis or infection (principal); F10.10 Alcohol abuse, uncomplicated; E87.6 Hypokalemia; F17.210 Nicotine dependence, cigarettes, uncomplicated
CPT/HCPCS: 80053; 81001; 82550; 83690; 83735; 84100; 84132; 84484; 84702; 85025; 85610; 85730; 93005; 96361; 96374; 96375; J2270; J2405; J3475; J3480; J7030

== ENCOUNTER 2016-07-18 04:11 | Inpatient (IN) | payer SELFPAY ==
[2016-07-18] VITALS (11 sets, daily range): BP systolic 142–167; BP diastolic 89–115; PULSE 77–123; RESP 16–20; TEMP 98.2–99.2; O2SAT 96–100
[~2016-07-18] VITALS: Ht 152.4 cm; Wt 62.4 kg
[~2016-07-18 04:11] MED LIST changes: -CIPR250T52 PO; +FOLI1TAB4 PO; +VITA100T2 PO
[2016-07-18] MEDS ORDERED: MORPHINE SULFATE 4 MG/ML INJ IV PUSH ONE (04:45)
[2016-07-18] MEDS ORDERED: ONDANSETRON HCL 4 MG/2 ML VIAL IV ONE (04:45)
[2016-07-18] MEDS ORDERED: SODIUM CHLOR 0.9% 1000 ML INJ 1,000 ML IV ONE ×2 (04:45→06:15)
--- NOTE | 2016-07-18 04:46 | PD ---
HPI Chief Complaint: GI Complaint Time Seen by Provider: 04:23 Travel History International Travel<30 days: No Contact w/Intl Traveler<30days: No Traveled to known affect area: No History of Present Illness HPI The patient is a 40 year old female who presents to the [facility] emergency department with a history of abdominal pain that began on Saturday. The patient reports that the pain is in the midepigastric area and is constant. She reports that the pain is a dull aching sensation with intermittent sharp pains that radiate to her back. She reports that the pain is similar to when she's had pancreatitis in the past. She reports that she did drink heavily over the weekend. She reports that on Saturday, Saturday, and Saturday she had between 6 and 8 shots of whiskey. The patient reports that yesterday she did have some whiskey to try to dull the pain. She reports that she's had nausea and vomiting 10 times in the last 24 hours. She reports that she had diarrhea on Saturday, however no diarrhea in the last 24 hours. She denies having any fevers or chills. On review of systems, the patient denies any recent fevers, cough, congestion, neck pain, chest pain, shortness of breath, urinary symptoms , or neurologic symptoms. LMP: July 02, 2016. [facility] Past Medical History Narrative Medical The patient's past medical history is significant for pancreatitis, history of alcohol abuse, history of colitis, history of anxiety, history of depression, history of acid reflux. Anxiety: Yes Depression: Yes Heart Rhythm Problems: No Cancer: No Cardiovascular Problems: Yes High Cholesterol: No Chest Pain: Yes Congestive Heart Failure: No Diminished Hearing: No Endocrine: No Gastrointestinal Disorders: No GERD: Yes Genitourinary: No Hiatal Hernia: No Hypertension: No Immune Disorder: No Implanted Vascular Access Dvce: No Musculoskeletal: No Neurologic: No Psychiatric: Yes Reproductive: No Respiratory: No Pancreatitis: Yes Ulcer: No ?: Not LMP: 07/02/16 Past Surgical History Narrative Surgical The patient's past surgical history is reportedly none. Other Surgery: No Social History Alcohol Use: Yes (6-7 shots when she drinks.) Tobacco Use: Yes (5 cigarettes per day) Substance Use: No Allergies-Medications (Allergen,Severity, Reaction): Coded Allergies: No Known Allergies (Unverified , 5/24/17) Reported Meds & Prescriptions Reported Meds & Active Scripts Active Folate (Folic Acid) 1 Mg Tab 1 Mg PO DAILY Vitamin B-1 (Thiamine HCl) 100 Mg Tab 100 Mg PO DAILY Review of Systems General / Constitutional: Positive: Fever Eyes: No: Visual changes HENT: No: Headaches Cardiovascular: No: Chest Pain or Discomfort Respiratory: No: Shortness of Breath Gastrointestinal: Positive: Nausea, Vomiting, Diarrhea, Abdominal Pain, Changes in Bowel Habits, Indigestion, No: Hematemesis, Hematochezia, Constipation, Loss of Appetite Genitourinary: No: Dysuria Musculoskeletal: No: Pain Skin: No Rash Neurologic: No: Weakness Psychiatric: No: Depression Endocrine: No: Polydipsia Hematologic/Lymphatic: No: Easy Bruising Physical Exam Narrative General: The patient is a well-developed well-nourished female in no acute distress. Head and Neck exam: Head is normocephalic atraumatic. Eyes: EOMI, pupils are equal round and reactive to light. Nose: Midline septum with pink mucous membranes Mouth: Dentition unremarkable. Tacky mucus membranes. Posterior oropharynx is not erythematous. No tonsillar hypertrophy. Uvula midline. Airway patent. Neck: No palpable lymphadenopathy. No nuchal rigidity. No thyromegaly. Cardiovascular: Sinus tachycardia in the 1 teens without murmurs, gallops, or rubs. No pulse deficit to the extremities and simultaneous auscultation and palpation of her radial artery Lungs: Clear to auscultation bilaterally. No wheezes, rhonchi, or rales. Abdomen: Soft, with tenderness on palpation in the midepigastric area and right upper quadrant of the abdomen no other tenderness on palpation of the other quadrants of the abdomen. No guarding, rebound, or rigidity. Normal bowel sounds are audible. No tenderness on palpation of McBurney's point. Negative [place] sign. Extremities: No clubbing, cyanosis, or edema. 2+ pulses in all 4 extremities. No calf tenderness on palpation. Back: No spinous process tenderness to palpation. No costovertebral angle tenderness to palpation. Neurologic Exam: Grossly nonfocal. Skin Exam: No rash noted. Intact skin that is warm and dry. Data Data Last Documented VS Vital Signs Date Time Temp Pulse Resp B/P Pulse Ox O2 Delivery O2 Flow Rate FiO2 07/18/16 05:01 95 18 167/98 96 Room Air 07/18/16 04:13 98.5 Orders Complete Blood Count With Diff (07/18/16 04:26) Comprehensive Metabolic Panel (07/18/16 04:26) Lipase (07/18/16 04:26) Urinalysis - C+S If Indicated (07/18/16 04:26) Magnesium (Mg) (07/18/16 04:26) Iv Access Insert/Monitor (07/18/16 04:26) Ecg Monitoring (07/18/16 04:26) Oximetry (07/18/16 04:26) Ed Urine Pregnancytest Poc (07/18/16 04:26) Sodium Chlor 0.9% 1000 Ml Inj (Ns 1000 M (07/18/16 04:45) Ondansetron Inj (Zofran Inj) (07/18/16 04:45) Morphine Inj (Morphine Inj) (07/18/16 04:45) Ct Abd/Pel W/O Iv Contrast (07/18/16 05:30) Sodium Chlor 0.9% 1000 Ml Inj (Ns 1000 M (07/18/16 06:15) Admit Order (Ed Use Only) (07/18/16 06:08) Labs Laboratory Tests Test 07/18/16 07/18/16 04:45 04:50 White Blood Count 11.4 TH/MM3 Red Blood Count 4.49 MIL/MM3 Hemoglobin 13.7 GM/DL Hematocrit 41.2 % Mean Corpuscular Volume 91.8 FL Mean Corpuscular Hemoglobin 30.5 PG Mean Corpuscular Hemoglobin 33.3 % Concent Red Cell Distribution Width 14.2 % Platelet Count 453 TH/MM3 Mean Platelet Volume 7.7 FL Neutrophils (%) (Auto) 72.0 % Lymphocytes (%) (Auto) 17.0 % Monocytes (%) (Auto) 8.8 % Eosinophils (%) (Auto) 1.5 % Basophils (%) (Auto) 0.7 % Neutrophils # (Auto) 8.2 TH/MM3 Lymphocytes # (Auto) 1.9 TH/MM3 Monocytes # (Auto) 1.0 TH/MM3 Eosinophils # (Auto) 0.2 TH/MM3 Basophils # (Auto) 0.1 TH/MM3 CBC Comment DIFF FINAL Differential Comment Sodium Level 138 MEQ/L Potassium Level 3.4 MEQ/L Chloride Level 96 MEQ/L Carbon Dioxide Level 27.1 MEQ/L Anion Gap 15 MEQ/L Blood Urea Nitrogen 9 MG/DL Creatinine 0.78 MG/DL Estimat Glomerular Filtration 82 ML/MIN Rate Random Glucose 114 MG/DL Calcium Level 8.6 MG/DL Magnesium Level 1.5 MG/DL Total Bilirubin 1.0 MG/DL Aspartate Amino Transf 59 U/L (AST/SGOT) Alanine Aminotransferase 36 U/L (ALT/SGPT) Alkaline Phosphatase 100 U/L Total Protein 7.9 GM/DL Albumin 4.0 GM/DL Lipase 2433 U/L Urine Color YELLOW Urine Turbidity HAZY Urine pH 6.0 Urine Specific [place] 1.020 Urine Protein 30 mg/dL Urine Glucose (UA) NEG mg/dL Urine Ketones TRACE mg/dL Urine Occult Blood MOD Urine Nitrite NEG Urine Bilirubin NEG Urine Urobilinogen LESS THAN 2.0 MG/DL Urine Leukocyte Esterase NEG Urine RBC 26 /hpf Urine WBC 4 /hpf Urine Squamous Epithelial 7 /hpf Cells Urine Bacteria OCC /hpf Urine Mucus FEW /lpf Microscopic Urinalysis Comment CULT NOT INDICATED MDM Medical Decision Making Medical Screen Exam Complete: Yes Emergency Medical Condition: Yes Medical Record Reviewed: Yes Interpretation(s) Last Impressions Abdomen/Pelvis CT 07/18/16 0530 Signed Impressions: Service Date/Time: Saturday, July 18, 2016 05:40 - CONCLUSION: Acute pancreatitis not present previously. Heather Medeiros MD Differential Diagnosis Pancreatitis, versus peptic ulcer disease, versus acid reflux, versus gastroenteritis, versus electrolyte derangements, versus dehydration Narrative Course During the course of the patients emergency department visit, the patients history, examination, and differential diagnosis were reviewed with the patient. The patient had IV access obtained and blood work sent for analysis. The patient was put on a monitoring analyst with oximetry and blood pressure monitoring. The patient was initially provided normal saline 1 L IV fluid bolus, morphine formally grams IV, Zofran 4 mg IV The patients laboratory studies were reviewed and remarkable for a white count of 11.4, hemoglobin 13.7, platelets 453 with 72 neutrophils, monocytes 8.8 , CMP is remarkable for potassium of 3.4, glucose 114, AST 59, lipase 2433 Radiology studies were reviewed and remarkable for a CT scan of the abdomen and pelvis that shows acute pancreatitis, no other acute abnormality. The patients results were discussed with the patient, including the plan of care. I explained that further testing and/ or monitoring is indicated based on the patients history, examination, and/ or laboratory findings. Therefore, I recommended admission for additional evaluation. The patient expressed understanding and was agreeable with this plan. The patient was admitted to the hospital in stable condition and [facility] Physician Communication Physician Communication The patient's case was discussed with who did agree to admit the patient for further evaluation and treatment at this time. Diagnosis Primary Impression: Abdominal pain Qualified Code: R10.84 - Generalized abdominal pain Additional Impression: Vomiting Qualified Code: R11.2 - Non-intractable vomiting with nausea, unspecified vomiting type Admitting Information Admitting Physician Requests: it Lucrecia Helton MD July 18, 2016 04:46
[2016-07-18 04:59] LABS: AUTOMATED NEUTROPHIL # 8.2 TH/MM3 (1.8-7.7); BASOPHIL # 0.1 TH/MM3 (0-0.2); BASOPHIL % 0.7 % (0.0-2.0); EOSINOPHIL # 0.2 TH/MM3 (0-0.4); EOSINOPHIL % 1.5 % (0.0-4.0); HEMATOCRIT 41.2 % (35.0-46.0); HEMO FLAGS DIFF FINAL; LYMPHOCYTE # 1.9 TH/MM3 (1.0-4.8); MEAN CELL VOLUME 91.8 FL (80.0-100.0); MEAN CORPUSCULAR HEMOGLOBIN 30.5 PG (27.0-34.0); MEAN CORPUSCULAR HGB CONC 33.3 % (32.0-36.0); MONO % 8.8 % (0.0-8.0); PLATELET COUNT 453 TH/MM3 (150-450); RED BLOOD COUNT 4.49 MIL/MM3 (4.00-5.30); RED CELL DISTRIBUTION WIDTH 14.2 % (11.6-17.2); WHITE BLOOD COUNT 11.4 TH/MM3 (4.0-11.0)
[2016-07-18 05:22] LABS: BACTERIA, URINE OCC /hpf; BLOOD, URINE MOD (NEG); COMMENT (UR) CULT NOT INDICATED; CULTURE IF INDICATED CULT NOT INDICATED; GLUCOSE,URINE NEG (NEG); KETONE, URINE TRACE mg/dL (NEG); MUCUS URINE FEW /lpf (OCC); NITRITE,URINE NEG (NEG); SQUAMOUS EPITHELIAL CELL URINE 7 /hpf (0-5); URINE COLOR YELLOW (YELLW/STRAW)
[2016-07-18 05:25] LABS: ANION GAP 15 MEQ/L (5-15)
[2016-07-18 05:27] LABS: ALKALINE PHOSPHATASE 100 U/L (45-117); ALT (GPT) 36 U/L (10-53); AST (GOT) 59 U/L (15-37); BICARBONATE 27.1 MEQ/L (21.0-32.0); BLOOD UREA NITROGEN 9 MG/DL (7-18); CHLORIDE 96 MEQ/L (98-107); GLOMERULAR FILTRATION RATE 82 ML/MIN (>89); MAGNESIUM 1.5 MG/DL (1.5-2.5); POTASSIUM 3.4 MEQ/L (3.5-5.1); SODIUM (NA) 138 MEQ/L (136-145)
[2016-07-18] MEDS ORDERED: SODIUM CHLORIDE 0.9% FLUSH 10 ML FLUSH IV FLUSH PRN (06:15)
[2016-07-18] MEDS ORDERED: SENNOSIDES 8.6 MG TAB PO PRN (06:15)
[2016-07-18] MEDS ORDERED: ACETAMINOPHEN 325 MG TAB PO PRN ×2 (06:15)
[2016-07-18] MEDS ORDERED: ONDANSETRON HCL 4 MG/2 ML VIAL IVP PRN (06:15)
[2016-07-18] MEDS ORDERED: NALOXONE HCL 0.4 MG/ML AMP IV PRN (06:15)
[2016-07-18] MEDS ORDERED: POTASSIUM CHLOR 20 MEQ PREMIX 100 ML IV ONE (06:15)
--- NOTE | 2016-07-18 06:24 | RADRPT ---
EXAM DATE/TIME: 07/18/2016 05:40 [place] COMPARISON: No previous studies available for comparison. INDICATIONS : Abdomen pain and nausea. History of pancreatitis. ORAL CONTRAST: No oral contrast ingested. RADIATION DOSE: 7.12 CTDIvol (mGy) MEDICAL HISTORY : Cardiovascular disease. Pancreatitis. Gastroesophageal reflux disease. SURGICAL HISTORY : None. ENCOUNTER: Initial ACUITY: 2 days PAIN SCALE: 6/10 LOCATION: Abdomen TECHNIQUE: Volumetric scanning of the abdomen and pelvis was performed. Using automated exposure control and adjustment of the mA and/or kV according to patient size, radiation dose was kept as low as reasonably achievable to obtain optimal diagnostic quality images. FINDINGS: CT Abdomen: There is haziness surrounding the pancreas extending to the third portion of the duodenum and right Gerota's fascia not present previously. There is no pseudocyst formation or abscess format ion. The liver, spleen, kidneys, adrenals are unremarkable. There is no evidence for any appreciable pathological adenopathy, free fluid, or bowel obstruction. Small hiatal hernia is seen. The prior eunice dy demonstrated fatty liver, however the liver is not fatty on today's examination. CT pelvis: There is no evidence for mass, abscess formation, or any significant adenopathy within the pelvis. There is mild haziness of the fat planes in the mesentery may represent extension of the beasley creatitis to this area. CONCLUSION: Acute pancreatitis not present previously. Heather Medeiros MD on July 18, 2016 at 6:18 Board Certified Radiologist. This report was verified electronically.
[2016-07-18] MEDS: SODIUM CHLOR 0.9% 1000 ML INJ 1,000 ML IV SCH ×4 (06:40→15:04)
--- NOTE | 2016-07-18 08:01 | HHI.HP ---
HPI Service [facility] Hospitalists Primary Care Physician No Primary Care Physician Admission Diagnosis Acute pancreatitis Diagnoses: (1) Recurrent acute pancreatitis Chief Complaint: Mid epigastric pain Travel History International Travel<30 Days: No Contact w/Intl Traveler <30 Da: No Traveled to Known Affected Are: No History of Present Illness 40 year-old female recently admitted to [place] on 06/28/16 and discharged 06/30/16 came back to the ED last night for evaluation of 2 days history of midepigastric sharp pain described as stabbing, dull and constant and rated 10/10 in intensity with radiation to her back and associated with nausea and vomiting without any relief. Patient reports drinking heavily over the weekend, and states she's had between 6-8 shots of whiskey. She also reported diarrhea on Saturday however 24 hours prior to arrival to the ED it's resolved. She denies any febrile episode, chest pain or shortness of breath. She has no GI bleed. Review of Systems Except as stated in HPI: all other systems reviewed are Neg Past Family Social History Past Medical History pancreatitis, history of alcohol abuse, history of colitis, history of anxiety, history of depression, history of acid reflux. Past Surgical History None Reported Medications Folate (Folic Acid) 1 Mg Tab 1 Mg PO DAILY Vitamin B-1 (Thiamine HCl) 100 Mg Tab 100 Mg PO DAILY Allergies: Coded Allergies: No Known Allergies (Unverified , 07/18/16) Family History Father was alcoholic Grand father from complication of cirrhosis Social History Alcohol Use: Yes (6-7 shots when she drinks.) Tobacco Use: Yes (5 cigarettes per day) Substance Use: No Physical Exam Vital Signs Vital Signs Date Time Temp Pulse Resp B/P Pulse Ox O2 Delivery O2 Flow Rate FiO2 07/18/16 07:46 97 16 147/98 97 07/18/16 06:50 160/99 07/18/16 06:41 93 16 161/103 99 Room Air 07/18/16 06:19 103 16 163/111 98 07/18/16 05:01 95 18 167/98 96 Room Air 07/18/16 04:35 100 Room Air 07/18/16 04:13 98.5 123 16 161/115 100 Physical Exam GENERAL: This is a well-nourished, well-developed patient, in no apparent distress. SKIN: No rashes, ecchymoses or lesions. Cool and dry. HEAD: Atraumatic. Normocephalic. No temporal or scalp tenderness. EYES: Pupils equal round and reactive. Extraocular motions intact. No scleral icterus. No injection or drainage. ENT: Nose without bleeding, purulent drainage or septal hematoma. Throat without erythema, tonsillar hypertrophy or exudate. Uvula midline. Airway patent. NECK: Trachea midline. No JVD or lymphadenopathy. Supple, nontender, no meningeal signs. CARDIOVASCULAR: Regular rate and rhythm without murmurs, gallops, or rubs. RESPIRATORY: Clear to auscultation. Breath sounds equal bilaterally. No wheezes , rales, or rhonchi. GASTROINTESTINAL: Abdomen soft, mildly tender midepigastric, nondistended. No hepato-splenomegaly, or palpable masses. No guarding. MUSCULOSKELETAL: Extremities without clubbing, cyanosis, or edema. No joint tenderness, effusion, or edema noted. No calf tenderness. Negative [place] sign bilaterally. NEUROLOGICAL: Awake and alert. Cranial nerves II through XII intact. Motor and sensory grossly within normal limits. Five out of 5 muscle strength in all muscle groups. Normal speech. Laboratory Laboratory Tests Test 07/18/16 07/18/16 04:45 04:50 White Blood Count 11.4 Red Blood Count 4.49 Hemoglobin 13.7 Hematocrit 41.2 Mean Corpuscular Volume 91.8 Mean Corpuscular Hemoglobin 30.5 Mean Corpuscular Hemoglobin 33.3 Concent Red Cell Distribution Width 14.2 Platelet Count 453 Mean Platelet Volume 7.7 Neutrophils (%) (Auto) 72.0 Lymphocytes (%) (Auto) 17.0 Monocytes (%) (Auto) 8.8 Eosinophils (%) (Auto) 1.5 Basophils (%) (Auto) 0.7 Neutrophils # (Auto) 8.2 Lymphocytes # (Auto) 1.9 Monocytes # (Auto) 1.0 Eosinophils # (Auto) 0.2 Basophils # (Auto) 0.1 CBC Comment DIFF FINAL Differential Comment Sodium Level 138 Potassium Level 3.4 Chloride Level 96 Carbon Dioxide Level 27.1 Anion Gap 15 Blood Urea Nitrogen 9 Creatinine 0.78 Estimat Glomerular Filtration 82 Rate Random Glucose 114 Calcium Level 8.6 Magnesium Level 1.5 Total Bilirubin 1.0 Aspartate Amino Transf 59 (AST/SGOT) Alanine Aminotransferase 36 (ALT/SGPT) Alkaline Phosphatase 100 Total Protein 7.9 Albumin 4.0 Lipase 2433 Urine Color YELLOW Urine Turbidity HAZY Urine pH 6.0 Urine Specific [place] 1.020 Urine Protein 30 Urine Glucose (UA) NEG Urine Ketones TRACE Urine Occult Blood MOD Urine Nitrite NEG Urine Bilirubin NEG Urine Urobilinogen LESS THAN 2.0 Urine Leukocyte Esterase NEG Urine RBC 26 Urine WBC 4 Urine Squamous Epithelial 7 Cells Urine Bacteria OCC Urine Mucus FEW Microscopic Urinalysis Comment CULT NOT INDICATED Result Diagram: 07/18/1644407/18/16444 Imaging Last Impressions Abdomen/Pelvis CT 07/18/16529 Signed Impressions: Service Date/Time: Saturday, July 18, 2016 05:40 - CONCLUSION: Acute pancreatitis not present previously. Heather Medeiros MD Assessment and Plan Problem List: (1) Recurrent acute pancreatitis ICD Code: K85.90 Status: Acute (2) Leukocytosis ICD Code: D72.829 Status: Acute (3) Tobacco abuse ICD Code: Z72.0 Status: Chronic (4) Alcohol abuse ICD Code: F10.10 Status: Acute (5) Hypokalemia ICD Code: E87.6 Status: Acute Assessment and Plan 40-year-old female with Recurrent acute pancreatitis -CT abdomen noted and reviewed by me with finding of Acute pancreatitis not present previously -Keep nothing by mouth, aggressive IV fluid hydration, parenteral pain management and antiemetic when necessary -Lipase on admission of 2433 and monitor lipase level as well as calcium Leukocytosis Stress reactive Continue to monitor CBC Hypokalemia Replace electrolyte and monitor DVT prophylaxis: Bilateral SCDs GI prophylaxis: PPI Code Status Full code Discussed Condition With Patient Physician Certification 2 Midnight Certification Type: Admission for Inpatient Services Order for Inpatient Services The services are ordered in accordance with Medicare regulations or non- Medicare payer requirements, as applicable. In the case of services not specified as inpatient-only, they are appropriately provided as inpatient services in accordance with the 2-midnight benchmark. Estimated LOS (days): 2 days is the estimated time the patient will need to remain in the hospital, assuming treatment plan goals are met and no additional complications. Post-Hospital Plan: Not yet determined Pontey,Carlin MD July 18, 2016 08:01
[2016-07-18] MEDS: SODIUM CHLORIDE 0.9% FLUSH 10 ML FLUSH IV FLUSH SCH ×2 (09:00→21:00)
[2016-07-18] MEDS ORDERED: RESP: ALBUTEROL 2.5 MG/IPRATROPIUM 0.5 MG NEB (PRN) NEB (09:15)
[2016-07-18] MEDS: DOCUSATE SODIUM 100 MG CAP PO SCH ×2 (10:28→22:34)
[2016-07-18] MEDS: PANTOPRAZOLE SODIUM 40 MG VIAL IV PUSH SCH (10:29)
[2016-07-18] MEDS: MORPHINE SULFATE 4 MG/ML INJ IV PRN ×2 (10:30→22:34)
[2016-07-18] MEDS ORDERED: ENALAPRILAT 1.25 MG/ML VIAL IV PUSH PRN (22:00)
[2016-07-19] VITALS: BP 130/83; PULSE 74; RESP 16; TEMP 97.9; O2SAT 99
[2016-07-19 04:00] VITALS: BP 153/96; PULSE 83; RESP 18; TEMP 97.4; O2SAT 100
[2016-07-19] MEDS: MORPHINE SULFATE 4 MG/ML INJ IV PRN ×5 (05:21→23:47)
[2016-07-19 07:34] LABS: AUTOMATED NEUTROPHIL # 5.6 TH/MM3 (1.8-7.7); BASOPHIL # 0.1 TH/MM3 (0-0.2); BASOPHIL % 0.7 % (0.0-2.0); EOSINOPHIL # 0.4 TH/MM3 (0-0.4); EOSINOPHIL % 5.4 % (0.0-4.0); HEMATOCRIT 34.1 % (35.0-46.0); HEMO FLAGS DIFF FINAL; LYMPH % 17.5 % (9.0-44.0); LYMPHOCYTE # 1.4 TH/MM3 (1.0-4.8); MEAN CELL VOLUME 92.5 FL (80.0-100.0); MEAN CORPUSCULAR HEMOGLOBIN 31.7 PG (27.0-34.0); MEAN CORPUSCULAR HGB CONC 34.3 % (32.0-36.0); MONO % 8.4 % (0.0-8.0); PLATELET COUNT 320 TH/MM3 (150-450); RED BLOOD COUNT 3.69 MIL/MM3 (4.00-5.30); RED CELL DISTRIBUTION WIDTH 13.7 % (11.6-17.2); WHITE BLOOD COUNT 8.2 TH/MM3 (4.0-11.0)
[2016-07-19 07:50] VITALS: BP 129/94; PULSE 79; RESP 20; TEMP 97.7; O2SAT 99
[2016-07-19 08:26] LABS: CALCIUM-PROTEIN CORRECTED 7.5 MG/DL (8.5-10.1)
[2016-07-19 08:27] LABS: POTASSIUM 3.3 MEQ/L (3.5-5.1); TOTAL BILIRUBIN ADULT 1.2 MG/DL (0.2-1.0)
[2016-07-19 08:28] LABS: BICARBONATE 30.8 MEQ/L (21.0-32.0)
[2016-07-19] MEDS: PANTOPRAZOLE SODIUM 40 MG VIAL IV PUSH SCH (08:40)
[2016-07-19] MEDS: DOCUSATE SODIUM 100 MG CAP PO SCH ×2 (08:40→20:33)
[2016-07-19] MEDS: SODIUM CHLORIDE 0.9% FLUSH 10 ML FLUSH IV FLUSH SCH ×2 (08:41→21:00)
[2016-07-19] MEDS ORDERED: POTASSIUM CHLORIDE 20 MEQ CONTROLLED RELEASE TAB PO ONE (11:00)
[2016-07-19 11:27] VITALS: BP 111/74; PULSE 83; RESP 20; TEMP 98.6; O2SAT 97
[2016-07-19] MEDS: SODIUM CHLOR 0.9% 1000 ML INJ 1,000 ML IV SCH ×3 (12:04→23:47)
--- NOTE | 2016-07-19 13:22 | HHI.PR ---
Subjective Remarks Follow-up recurrent pancreatitis 07/19/16-patient seen and examined, lipase is down to 393 and patient reports some improvement of mid epigastric pain and denies any significant radiation to her back. Objective Vitals Vital Signs Date Time Temp Pulse Resp B/P Pulse Ox O2 Delivery O2 Flow Rate FiO2 07/19/16 11:27 98.6 83 20 111/74 97 07/19/16 07:50 97.7 79 20 129/94 99 07/19/16 04:00 97.4 83 18 153/96 100 07/19/16 00:00 97.9 74 16 130/83 99 07/18/16 20:00 98.2 82 18 161/108 98 07/18/16 16:07 16 07/18/16 15:55 98.7 77 20 142/89 99 I/O 07/18/16 07/18/16 07/18/16 07/19/16 07/19/16 07/19/16 07:00 15:00 23:00 07:00 15:00 23:00 Intake Total 0 ml Balance 0 ml Intake Oral 0 ml # Voids 1 1 2 # Bowel Movements 0 Result Diagram: 07/19/16 0708 07/19/16 0708 Imaging Last Impressions Abdomen/Pelvis CT 07/18/16 0530 Signed Impressions: Service Date/Time: Monday, July 18, 2016 05:40 - CONCLUSION: Acute pancreatitis not present previously. Heather Medeiros MD Objective Remarks GENERAL: NAD SKIN: Warm and dry. HEAD: Normocephalic. EYES: No scleral icterus. No injection or drainage. NECK: Supple, trachea midline. No JVD or lymphadenopathy. CARDIOVASCULAR: Regular rate and rhythm without murmurs, gallops, or rubs. RESPIRATORY: Breath sounds equal bilaterally. No accessory muscle use. GASTROINTESTINAL: Abdomen soft, non-tender, nondistended. MUSCULOSKELETAL: No cyanosis, or edema. BACK: Nontender without obvious deformity. No CVA tenderness. Procedures none A/P Problem List: (1) Recurrent acute pancreatitis ICD Code: K85.90 Status: Acute (2) Leukocytosis ICD Code: D72.829 Status: Acute (3) Tobacco abuse ICD Code: Z72.0 Status: Chronic (4) Alcohol abuse ICD Code: F10.10 Status: Acute (5) Hypokalemia ICD Code: E87.6 Status: Acute Assessment and Plan 40-year-old female with Recurrent acute pancreatitis -CT abdomen with finding of Acute pancreatitis not present previously -Start full liquid diet and continue aggressive IV fluid hydration, parenteral pain management and antiemetic when necessary -Lipase on admission of 2433 and now down to 393 Consider discharge home if patient tolerates full liquid diet Leukocytosis Resolved Continue to monitor CBC Hypokalemia Replace electrolyte and monitor DVT prophylaxis: Bilateral SCDs GI prophylaxis: PPI Carlin Lindsey MD July 19, 2016 13:22
[2016-07-19 15:20] VITALS: BP 123/94; PULSE 87; RESP 20; TEMP 98.3; O2SAT 96
[2016-07-19 20:08] VITALS: BP 130/87; PULSE 91; RESP 16; TEMP 98; O2SAT 100
[2016-07-19] MEDS ORDERED: MELATONIN 5 MG TAB PO ONE (23:15)
[2016-07-20] VITALS: BP 142/101; PULSE 85; RESP 17; TEMP 97.3; O2SAT 97
[2016-07-20 04:00] VITALS: BP 118/76; PULSE 79; RESP 16; TEMP 97.9; O2SAT 100
[2016-07-20] MEDS: MORPHINE SULFATE 4 MG/ML INJ IV PRN (05:55)
[2016-07-20] MEDS: SODIUM CHLOR 0.9% 1000 ML INJ 1,000 ML IV SCH (05:56)
[2016-07-20 08:00] VITALS: BP 127/83; PULSE 85; RESP 18; TEMP 98.1; O2SAT 98
[2016-07-20] MEDS: DOCUSATE SODIUM 100 MG CAP PO SCH (08:20)
[2016-07-20] MEDS: PANTOPRAZOLE SODIUM 40 MG VIAL IV PUSH SCH (08:21)
[2016-07-20] MEDS: SODIUM CHLORIDE 0.9% FLUSH 10 ML FLUSH IV FLUSH SCH (08:22)
--- NOTE | 2016-07-20 11:53 | HHI.DS ---
Discharge Summary Admission Date July 18, 2016 at 06:10 Discharge Date: July 20, 2016 Admitting Diagnosis Acute pancreatitis (1) Recurrent acute pancreatitis ICD Code: K85.90 (2) Leukocytosis ICD Code: D72.829 (3) Tobacco abuse ICD Code: Z72.0 (4) Alcohol abuse ICD Code: F10.10 (5) Hypokalemia ICD Code: E87.6 Procedures none Brief History - From Admission 40 year-old female recently admitted to [place] on 06/28/16 and discharged 06/30/16 came back to the ED last night for evaluation of 2 days history of midepigastric sharp pain described as stabbing, dull and constant and rated 10/10 in intensity with radiation to her back and associated with nausea and vomiting without any relief. Patient reports drinking heavily over the weekend, and states she's had between 6-8 shots of whiskey. She also reported diarrhea on Saturday however 24 hours prior to arrival to the ED it's resolved. She denies any febrile episode, chest pain or shortness of breath. She has no GI bleed. CBC/BMP: 07/19/16 0708 07/19/16 0708 Significant Findings Laboratory Tests Test 07/18/16 07/18/16 07/19/16 04:45 04:50 07:08 White Blood Count 11.4 TH/MM3 (4.0-11.0) Platelet Count 453 TH/MM3 (150-450) Neutrophils (%) (Auto) 72.0 % (16.0-70.0) Monocytes (%) (Auto) 8.8 % (0.0-8.0) 8.4 % (0.0-8.0) Neutrophils # (Auto) 8.2 TH/MM3 (1.8-7.7) Monocytes # (Auto) 1.0 TH/MM3 (0-0.9) Potassium Level 3.4 MEQ/L 3.3 MEQ/L (3.5-5.1) (3.5-5.1) Chloride Level 96 MEQ/L (98-107) Estimat Glomerular Filtration 82 ML/MIN (>89) Rate Random Glucose 114 MG/DL (74-106) Aspartate Amino Transf 59 U/L (15-37) (AST/SGOT) Lipase 2433 U/L 436 U/L (73-393) (73-393) Urine Turbidity HAZY (CLEAR) Urine Protein 30 mg/dL (NEG-TRACE) Urine Ketones TRACE mg/dL (NEG) Urine Occult Blood MOD (NEG) Urine RBC 26 /hpf (0-3) Urine Bacteria OCC /hpf (NONE) Urine Mucus FEW /lpf (OCC) Red Blood Count 3.69 MIL/MM3 (4.00-5.30) Hematocrit 34.1 % (35.0-46.0) Eosinophils (%) (Auto) 5.4 % (0.0-4.0) Blood Urea Nitrogen 3 MG/DL (7-18) Creatinine 0.45 MG/DL (0.50-1.00) Calcium Level 6.9 MG/DL (8.5-10.1) Protein Corrected Calcium 7.5 MG/DL (8.5-10.1) Total Bilirubin 1.2 MG/DL (0.2-1.0) Total Protein 6.0 GM/DL (6.4-8.2) Albumin 3.0 GM/DL (3.4-5.0) PE at Discharge GENERAL: NAD SKIN: Warm and dry. HEAD: Normocephalic. EYES: No scleral icterus. No injection or drainage. NECK: Supple, trachea midline. No JVD or lymphadenopathy. CARDIOVASCULAR: Regular rate and rhythm without murmurs, gallops, or rubs. RESPIRATORY: Breath sounds equal bilaterally. No accessory muscle use. GASTROINTESTINAL: Abdomen soft, non-tender, nondistended. MUSCULOSKELETAL: No cyanosis, or edema. BACK: Nontender without obvious deformity. No CVA tenderness. Hospital Course Recurrent acute pancreatitis-Resolved -CT abdomen with finding of Acute pancreatitis not present previously -Resolved with aggressive IV fluid hydration, parenteral pain management and antiemetic when necessary -Lipase on admission of 2433 and now down to 353 Leukocytosis Resolved Continue to monitor CBC Hypokalemia Replace electrolyte and monitor DVT prophylaxis: Bilateral SCDs GI prophylaxis: PPI Pt Condition on Discharge: Stable Discharge Disposition: Discharge Home Discharge Time: <= 30 minutes Discharge Instructions DIET: Follow Instructions for: Full Liquid Diet Activities you can perform: Regular-No Restrictions Follow up Referrals: PCP Follow-up - 1 Week Continued Medications: Folic Acid (Folate) 1 Mg Tab 1 MG PO DAILY Nutritional Supplement #30 Ref 0 TAB Thiamine (Vitamin B-1) 100 Mg Tab 100 MG PO DAILY Vitamin #30 Ref 0 TAB Carlin Lindsey MD July 20, 2016 11:53
--- NOTE | 2016-07-20 11:53 | HHI.PR ---
Subjective Remarks Follow-up recurrent pancreatitis 07/19/16-patient seen and examined, lipase is down to 393 and patient reports some improvement of mid epigastric pain and denies any significant radiation to her back. 07/20/16-patient seen and examined, lipase is down to 353. stable and no complaint this AM Objective Vitals Vital Signs Date Time Temp Pulse Resp B/P Pulse Ox O2 Delivery O2 Flow Rate FiO2 07/20/16 08:00 98.1 85 18 127/83 98 07/20/16 04:00 97.9 79 16 118/76 100 07/20/16 00:00 97.3 85 17 142/101 97 07/19/16 20:08 98.0 91 16 130/87 100 07/19/16 15:20 98.3 87 20 123/94 96 I/O 07/19/16 07/19/16 07/19/16 07/20/16 07/20/16 07/20/16 07:00 15:00 23:00 07:00 15:00 23:00 Intake Total 2028 ml 960 ml 1887 ml Output Total 1400 ml 2500 ml Balance 628 ml -1540 ml 1887 ml Intake Oral 742 ml 960 ml IV Total 1286 ml 1887 ml Output Urine Total 1400 ml 2500 ml Stool Total 0 ml # Voids 3 # Bowel Movements 0 Result Diagram: 07/19/16 0708 07/19/16 0708 Imaging Last Impressions Abdomen/Pelvis CT 07/18/16 0530 Signed Impressions: Service Date/Time: Monday, July 18, 2016 05:40 - CONCLUSION: Acute pancreatitis not present previously. Heather Medeiros MD Objective Remarks GENERAL: NAD SKIN: Warm and dry. HEAD: Normocephalic. EYES: No scleral icterus. No injection or drainage. NECK: Supple, trachea midline. No JVD or lymphadenopathy. CARDIOVASCULAR: Regular rate and rhythm without murmurs, gallops, or rubs. RESPIRATORY: Breath sounds equal bilaterally. No accessory muscle use. GASTROINTESTINAL: Abdomen soft, non-tender, nondistended. MUSCULOSKELETAL: No cyanosis, or edema. BACK: Nontender without obvious deformity. No CVA tenderness. Procedures none A/P Problem List: (1) Recurrent acute pancreatitis ICD Code: K85.90 Status: Acute (2) Leukocytosis ICD Code: D72.829 Status: Acute (3) Tobacco abuse ICD Code: Z72.0 Status: Chronic (4) Alcohol abuse ICD Code: F10.10 Status: Acute (5) Hypokalemia ICD Code: E87.6 Status: Acute Assessment and Plan 40-year-old female with Recurrent acute pancreatitis-Resolved -CT abdomen with finding of Acute pancreatitis not present previously -On full liquid diet and ADAT and continue aggressive IV fluid hydration, parenteral pain management and antiemetic when necessary -Lipase on admission of 2433 and now down to 353 Leukocytosis Resolved Continue to monitor CBC Hypokalemia Replace electrolyte and monitor DVT prophylaxis: Bilateral SCDs GI prophylaxis: PPI Carlin Lindsey MD July 20, 2016 11:52
== END 2016-07-20 14:00 | disposition home or self-care (01) | DRG 440 ==
LOC: NEPE 04:11 → NEDA 06:10 → HOCB 08:46
PROVIDERS: ADMIT Hospitalist; ATTEND Hospitalist
DX: K85.90 Acute pancreatitis without necrosis or infection, unspecified (principal); F32.9 Major depressive disorder, single episode, unspecified; E87.6 Hypokalemia; F41.9 Anxiety disorder, unspecified; F10.10 Alcohol abuse, uncomplicated; K21.9 Gastro-esophageal reflux disease without esophagitis; F17.210 Nicotine dependence, cigarettes, uncomplicated
CPT/HCPCS: 74176; 80053; 81001; 82948; 83690; 83735; 84703; 85025; 96361; 96374; 96375; C9113; J2270; J2405; J3480; J7030

== ENCOUNTER 2017-08-20 11:59 | Emergency (ER) | payer BC ==
[~2017-08-20] VITALS: Ht 152.4 cm; Wt 58.0 kg
[~2017-08-20 11:59] MED LIST changes: -PANT40TA3 PO
[2017-08-20 12:03] VITALS: BP 184/102; PULSE 113; RESP 16; TEMP 98.8; O2SAT 98
--- NOTE | 2017-08-20 12:13 | PD ---
HPI Chief Complaint: Cardiac Complaint Time Seen by Provider: 12:03 Travel History International Travel<30 days: No Contact w/Intl Traveler<30days: No Traveled to known affect area: No History of Present Illness HPI This is a 41-year-old female who presents to the emergency department having had routine blood work done by her primary care physician demonstrating a potassium of 2.8, constant, moderate severity, with no associated symptoms. She was told to come to the hospital but delayed. She was seen at her clinic today and they did an EKG and told her that she had atrial fibrillation and told her to come to the emergency department. She has been feeling otherwise well and has no complaints. She does report that she has a history of chronic pancreatitis, she drinks 6 shots of hard liquor daily, and she does have some chronic loose stools and has been told she has colitis in the past. PFSH Past Medical History Arthritis: No Asthma: No Autoimmune Disease: No Anxiety: Yes Depression: No Heart Rhythm Problems: No Cancer: No Cardiovascular Problems: No High Cholesterol: No Chemotherapy: No Chest Pain: Yes Congestive Heart Failure: No COPD: Yes Cerebrovascular Accident: No Diabetes: No Diminished Hearing: No Endocrine: No Gastrointestinal Disorders: No GERD: Yes Genitourinary: No Hiatal Hernia: No Hypertension: No Immune Disorder: No Implanted Vascular Access Dvce: No Kidney Stones: No Musculoskeletal: No Neurologic: No Psychiatric: No Reproductive: No Respiratory: No Migraines: No Pancreatitis: Yes Radiation Therapy: No Renal Failure: No Sickle Cell Disease: No Sleep Apnea: No Thyroid Disease: No Ulcer: Yes Tetanus Vaccination: Unknown Influenza Vaccination: No ?: Not Past Surgical History Abdominal Surgery: No AICD: No Arteriovenous Shunt: No Cardiac Surgery: No Ear Surgery: No Endocrine Surgery: No Eye Surgery: Yes (lasik) Genitourinary Surgery: No Gynecologic Surgery: No Insulin Pump: No Joint Replacement: No Oral Surgery: No Pacemaker: No Thoracic Surgery: No Other Surgery: No Social History Alcohol Use: Yes (6-7 shots when she drinks.) Tobacco Use: Yes (5 cigarettes per day) Substance Use: No Allergies-Medications (Allergen,Severity, Reaction): Coded Allergies: No Known Allergies (Unverified Allergy, Unknown, 08/20/17) Reported Meds & Prescriptions Reported Meds & Active Scripts Active No Active Prescriptions or Reported Medications Review of Systems Except as stated in HPI: all other systems reviewed are Neg Physical Exam Narrative GENERAL:Well appearing, no acute distress SKIN: Focused skin assessment warm and dry. HEAD: Atraumatic. Normocephalic. EYES: Pupils equal and round. No injection or drainage. ENT: Moist mucous membranes NECK: Trachea midline. CARDIOVASCULAR: Regular rate and rhythm. No murmur appreciated. RESPIRATORY: Clear to auscultation. Breath sounds equal bilaterally. GASTROINTESTINAL: Abdomen soft, non-tender, nondistended. MUSCULOSKELETAL: No obvious deformities. NEUROLOGICAL: Awake and alert. No obvious cranial nerve deficits. Moving all extremities. PSYCHIATRIC: Appropriate mood and affect; insight and judgment normal. Data Data Last Documented VS Vital Signs Date Time Temp Pulse Resp B/P (MAP) Pulse Ox O2 Delivery O2 Flow Rate FiO2 08/20/17 12:07 113 98 Room Air 08/20/17 12:03 98.8 16 184/102 (129) Orders Orders Electrocardiogram (08/20/17 ) Basic Metabolic Panel (Bmp) (08/20/17 12:11) Potassium Chlor 20 Meq Premix (Kcl 20 Me (08/20/17 13:15) Potassium Chloride Powder (Kcl Powder) (08/20/17 13:15) Labs Laboratory Tests Test 08/20/17 12:10 Blood Urea Nitrogen 8 MG/DL Creatinine 0.53 MG/DL Random Glucose 83 MG/DL Calcium Level 8.4 MG/DL Sodium Level 138 MEQ/L Potassium Level 2.5 MEQ/L Chloride Level 97 MEQ/L Carbon Dioxide Level 27.0 MEQ/L Anion Gap 14 MEQ/L Estimat Glomerular Filtration Rate 128 ML/MIN [facility] Medical Decision Making Medical Screen Exam Complete: Yes Emergency Medical Condition: Yes Interpretation(s) Afebrile, tachycardic and hypertensive Hypokalemia Differential Diagnosis Hypokalemia, atrial fibrillation, acute alcohol withdrawal, dehydration Narrative Course This is a 41-year-old female who presents to the emergency department with low potassium on blood work as well as reported EKG with atrial fibrillation. I reviewed the EKG that was sent from her primary care physician's office and the patient is in normal sinus rhythm. Some artifact on the EKG made the computer read A. fib. Here we repeated an EKG which remains in normal sinus rhythm. Blood work was obtained which demonstrates hypokalemia. She has a history of chronic loose stools which I suspect is the etiology. She has a referral to see a social worker psychiatric. Patient was given 40 of IV potassium and 40 of p.o. potassium and she will be discharged on 1 week of potassium and will follow up with her primary care physician. Diagnosis Primary Impression: Hypokalemia Patient Instructions: General Instructions Additional Instructions: Follow-up with your primary care physician in 1 week for potassium recheck. Med/Other Pt SpecificInfo: Prescription(s) given Scripts Potassium Chloride ER (Potassium Chloride ER) 20 Meq Tab 20 MEQ PO BID for Electrolyte Replacement, #14 TAB 0 Refills Prov: Rach Lee MD 08/20/17 Disposition: 01 DISCHARGE HOME Condition: Stable Rach Lee MD Aug 20, 2017 12:13
[2017-08-20 13:02] LABS: CALCIUM 8.4 MG/DL (8.5-10.1); CREATININE 0.53 MG/DL (0.50-1.00)
[2017-08-20] MEDS ORDERED: POTASSIUM CHLORIDE 20 MEQ PWD PACKET PO ONE (13:15)
[2017-08-20] MEDS: POTASSIUM CHLOR 20 MEQ PREMIX 100 ML IV SCH ×2 (13:22→15:11)
[2017-08-20] MEDS ORDERED: POTA-163 PO (14:23)
--- NOTE | 2017-08-21 21:44 | EKG ---
Date Performed: 08/20/2017 Time Performed: 12:07:42 PTAGE: 41 years EKG: SINUS TACHYCARDIA POSSIBLE LEFT ATRIAL ENLARGEMENT ABNORMAL RHYTHM ECG PREVIOUS TRACING : 06/28/2016 05.19 Since the previous tracing, no significant change noted DOCTOR: Deep Shah Interpretating Date/Time 08/21/2017 21:43:21
== END 2017-08-20 17:41 | disposition home or self-care (01) ==
LOC: PHED 11:59
DX: E87.6 Hypokalemia (principal); F17.210 Nicotine dependence, cigarettes, uncomplicated
CPT/HCPCS: 80048; 93005; 96365; 96366; 96367; 99283; J3480

== ENCOUNTER 2017-12-23 12:55 | Observation (INO) ==
[2017-12-23] MEDS ORDERED: Ketorolac Inj 30 MG/ML (IVP) Vial IV.PUSH ONE (13:17)
[2017-12-23 13:44] LABS: Baso # (Auto) 0.1 th/mm3 (0.0-0.2); Baso % (Auto) 1.3 % (0.0-2.0); Eos # (Auto) 0.1 th/mm3 (0.0-0.4); Eos % (Auto) 1.1 % (0.0-4.0); Hemoglobin 13.4 gm/dL (11.6-15.3); Lymph # (Auto) 1.5 th/mm3 (1.0-4.8); Lymph % (Auto) 28.3 % (9.0-44.0); Mean Corpuscular HGB Conc 34.4 % (32.0-36.0); Mean Corpuscular Volume 104.5 fL (80.0-100.0); Mono # (Auto) 0.5 th/mm3 (0.0-0.9); Mono % (Auto) 8.7 % (0.0-8.0); Neut # (Auto) 3.2 th/mm3 (1.8-7.7); Neut % (Auto) 60.6 % (16.0-70.0); Platelet Count 349 th/mm3 (150-450); Red Blood Count 3.73 mil/mm3 (4.00-5.30); Red Cell Distribution Width 14.8 % (11.6-17.2); White Blood Count 5.4 th/mm3 (4.0-11.0)
--- NOTE | 2017-12-23 13:55 | ED ---
HPI General Chief Complaint: Chest Pain Stated Complaint: Chest pain Time Seen by Provider: 12/23/17 13:04 Source: patient Mode of arrival: ambulatory Limitations: no limitations History of Present Illness HPI narrative: 42-year-old female presents to the emergency department for evaluation of chest pain that woke her up this morning. Patient states that the pain is substernal without radiation. She describes it as "sharp and strong ". She feels as if she was "punched in the chest". She says taking a deep breath and activity increases her pain. No palliative factors. Says she has associated, occasional shortness of breath. She denies history of DVT/PE, immobilization, fractures, surgeries. She says she has anxiety but this does not feel like an anxiety attack. She also states she smokes tobacco and drinks alcohol regularly. Evac states she was given ASA 325mg PO. She denies chronic medical issues or medication use. She states that she drinks alcohol daily and does go through withdrawals if she does not drink alcohol. MD complaint: Reports chest pain Onset (ago): hour(s) Duration: constant Onset: during exertion and awoke with symptoms Pain location: Reports substernal Severity scale (1-10): 5 Quality: Reports sharp Pain radiation: Reports none Relieving factors: nothing Exacerbating factors: exertion and inspiration Context: Denies recent illness, recent surgery, recent immobilization, recent travel and history of DVT/PE Associated symptoms: Reports cough (x 1-2 months); Denies nausea, vomiting, fever and leg swelling Treatments prior to arrival chest pain: Reports aspirin Related Data On Oral Contraceptives: No Home Medications Medication Instructions Recorded Confirmed No Known Home Medications 12/23/17 12/23/17 Allergies Allergy/AdvReac Type Severity Reaction Status Date / Time No Known Allergies Allergy Verified 12/23/17 13:08 Review of Systems ROS: all other systems reviewed are negative [facility] Medical History Medical History Anxiety (Acute) Colitis (Acute) Pancreatitis (Acute) Surgical History Surgical History No history of previous surgery (Acute) Social History Social History Substance History: Past History Second Hand Smoke Exposure: No Smoking Status: Light tobacco smoker Tobacco Type: Cigarettes How Often Do You Have a Drink Containing Alcohol: 4 or more times a week Recent Travel in [facility] within the Last 8 Weeks: No Recent Out of Country Travel within the Last 8 Weeks: No Immunization History Tetanus Immunization: Unsure Exam Narrative Exam Narrative: GENERAL: Well-developed, well-nourished no apparent distress SKIN: Focused skin assessment warm/dry. HEAD: Atraumatic. Normocephalic. EYES: Pupils equal and round. No scleral icterus. No injection or drainage. ENT: No nasal bleeding or discharge. Mucous membranes pink and moist. NECK: Trachea midline. No JVD. CARDIOVASCULAR: Regular rate and rhythm. No murmur appreciated. RESPIRATORY: No accessory muscle use. Clear to auscultation. Breath sounds equal bilaterally. Mild tenderness palpation of the chest wall GASTROINTESTINAL: Abdomen soft, non-tender, nondistended. Hepatic and splenic margins not palpable. No CVA tenderness MUSCULOSKELETAL: No obvious deformities. No clubbing. No cyanosis. No edema. No tenderness to palpation of the calves NEUROLOGICAL: Awake and alert. No obvious cranial nerve deficits. Motor grossly within normal limits. Normal speech. PSYCHIATRIC: Appropriate mood and affect; insight and judgment normal. Course Initial Documented Vital Signs Temperature 98.5 F 12/23/17 12:58 Pulse Rate 107 H 12/23/17 12:58 Respiratory Rate 20 12/23/17 12:58 Blood Pressure 161/108 H 12/23/17 12:58 Pulse Oximetry 98 12/23/17 12:58 Last Documented Vital Signs Temperature 98.5 F 12/23/17 12:58 Pulse Rate 98 H 12/23/17 15:40 Respiratory Rate 18 12/23/17 15:40 Blood Pressure 169/98 H 12/23/17 15:40 Pulse Oximetry 98 12/23/17 15:40 Clinical Decision Support PERC Rule Age greater than or equal to 50: No HR greather than or equal to 100: Yes Sa02 on room air is less than 95%: No Unilateral Leg Swelling: No Hemoptysis: No Recent Surgery or Trauma: No Prior PE or DVT: No Hormone Use: No Wells' Criteria Questions Clinical Signs and Symptoms of DVT: No PE is primary diagnosis or equally likely: Yes Heart Rate greater than 100: Yes Immobilized at least 3 days or Surgery in previous 4 weeks: No Previous, objectively diagnosed PE or DVT: No Hemoptysis: No Malignancy with treatment within 6 months or palliative: No Wells' Criteria Score Wells' Criteria Score: 4.5 Medical Decision Making MDM Narrative Medical decision making narrative: 42-year-old female with a history of anxiety presents to the emergency department evaluation of chest pain that she woke up with this morning. Patient states that the pain is substernal and described as sharp and strong. She says the pain is worse with taking a deep breath and movement. She says she has occasional shortness of breath as well. Unable to rule out with PERC or Wells. Ordered d-dimer for evaluation. Toradol for pain. Labs are stable. DDimer and troponin negative. Chest xray unremarkable. Nitro paste applied, Tylenol to help reduce chance of headache. Based off of tobacco use and age, recommended she be admits for chest pain, r/o ACS. She has a history of alcohol withdrawal. Recommend [facility] protocol. Spoke with Dr. Rosa who agreed to the admission. Medical Screen Exam Complete: Yes Emergency Medical Condition: Yes Differential Diagnosis Differential Diagnosis: AMI, angina, unstable angina, costochondritis, rib fracture, pneumonia, pneumothorax, aortic dissection, aortic aneurysm, pneumonitis, pulmonary embolism Lab Data Result diagrams: 12/23/17 13:34 12/23/17 13:34 POC Results POC Urine Results Negative Lab Results 12/23/17 12/23/17 12/23/17 Range/Units 13:34 13:34 13:34 WBC 5.4 (4.0-11.0) th/mm3 RBC 3.73 L (4.00-5.30) mil/mm3 Hgb 13.4 (11.6-15.3) gm/dL Hct 39.0 (35.0-46.0) % MCV 104.5 H (80.0-100.0) fL MCH 36.0 H (27.0-34.0) pg MCHC 34.4 (32.0-36.0) % RDW 14.8 (11.6-17.2) % Plt Count 349 (150-450) th/mm3 MPV 7.0 (7.0-11.0) fL Neut % (Auto) 60.6 (16.0-70.0) % Lymph % (Auto) 28.3 (9.0-44.0) % Keith % (Auto) 8.7 H (0.0-8.0) % Eos % (Auto) 1.1 (0.0-4.0) % Baso % (Auto) 1.3 (0.0-2.0) % Neut # (Auto) 3.2 (1.8-7.7) th/mm3 Lymph # (Auto) 1.5 (1.0-4.8) th/mm3 Keith # (Auto) 0.5 (0.0-0.9) th/mm3 Eos # (Auto) 0.1 (0.0-0.4) th/mm3 Baso # (Auto) 0.1 (0.0-0.2) th/mm3 WBC Differential . Differential Comment Auto diff final PT (9.8-11.6) sec INR Ratio APTT (24.3-30.1) sec D-Dimer Quant (PE/DVT) 0.20 (0.00-0.50) mg/L FEU Sodium 140 (136-145) meq/L Potassium 3.5 (3.5-5.1) meq/L Chloride 104 (98-107) meq/L Carbon Dioxide 24.7 (21.0-32.0) meq/L Anion Gap 11 (5-15) meq/L BUN 14 (7-18) mg/dL Creatinine 0.53 (0.50-1.00) mg/dL Estimated GFR Greater than 89 (>89) mL/min Random Glucose 77 (74-106) mg/dL Calcium 8.0 L (8.5-10.1) mg/dL Magnesium 1.4 L (1.5-2.5) mg/dL Total Bilirubin 0.5 (0.2-1.0) mg/dL AST 193 H (15-37) U/L ALT 82 H (10-53) U/L Alkaline Phosphatase 102 (45-117) U/L Troponin I Less than 0.02 L (0.02-0.05) ng/mL Total Protein 7.0 (6.4-8.2) g/dL Albumin 3.6 (3.4-5.0) g/dL Lipase 52 L (73-393) U/L 12/23/17 12/23/17 Range/Units 13:34 13:34 WBC (4.0-11.0) th/mm3 RBC (4.00-5.30) mil/mm3 Hgb (11.6-15.3) gm/dL Hct (35.0-46.0) % MCV (80.0-100.0) fL MCH (27.0-34.0) pg MCHC (32.0-36.0) % RDW (11.6-17.2) % Plt Count (150-450) th/mm3 MPV (7.0-11.0) fL Neut % (Auto) (16.0-70.0) % Lymph % (Auto) (9.0-44.0) % Keith % (Auto) (0.0-8.0) % Eos % (Auto) (0.0-4.0) % Baso % (Auto) (0.0-2.0) % Neut # (Auto) (1.8-7.7) th/mm3 Lymph # (Auto) (1.0-4.8) th/mm3 Keith # (Auto) (0.0-0.9) th/mm3 Eos # (Auto) (0.0-0.4) th/mm3 Baso # (Auto) (0.0-0.2) th/mm3 WBC Differential Differential Comment PT 11.7 H (9.8-11.6) sec INR 1.2 Ratio APTT 26.0 (24.3-30.1) sec D-Dimer Quant (PE/DVT) (0.00-0.50) mg/L FEU Sodium (136-145) meq/L Potassium (3.5-5.1) meq/L Chloride (98-107) meq/L Carbon Dioxide (21.0-32.0) meq/L Anion Gap (5-15) meq/L BUN (7-18) mg/dL Creatinine (0.50-1.00) mg/dL Estimated GFR (>89) mL/min Random Glucose (74-106) mg/dL Calcium (8.5-10.1) mg/dL Magnesium Cancelled (1.5-2.5) mg/dL Total Bilirubin (0.2-1.0) mg/dL AST (15-37) U/L ALT (10-53) U/L Alkaline Phosphatase (45-117) U/L Troponin I (0.02-0.05) ng/mL Total Protein (6.4-8.2) g/dL Albumin (3.4-5.0) g/dL Lipase (73-393) U/L Imaging Data Radiologist's impression: Chest X-Ray 12/23/17 13:17 CONCLUSION: No acute cardiopulmonary findings. Discharge Plan Discharge Disposition Patient Disposition: 30 Still Patient Discharge Condition Condition: Stable Discharge Details Diagnosis: Atypical chest pain Physicians Team ED Provider: Sinai Mathews ED Midlevel Provider: Mayda Gonsalez Primary Care Provider: Pattie Wong Attending Provider: Fartun Rosa Status ED Status: Left Department Discharge Information Discharge Date/Time: 12/23/17 16:03
--- NOTE | 2017-12-23 13:57 | XR ---
EXAM DATE: 12/23/2017 1:48 PM EDT AGE/SEX: 42 years / Female INDICATIONS: Cough, short of breath, chest pain started this morning CLINICAL DATA: This is the patient's initial encounter. Patient reports that signs and symptoms have been present for 1 day and indicates a pain score of 5/10. MEDICAL/SURGICAL HISTORY: None. None. COMPARISON: . FINDINGS: A single AP view of the chest demonstrates the lungs to be symmetrically aerated without evidence of mass, infiltrate or effusion. The cardiomediastinal contours are unremarkable. Osseous structures a re intact. CONCLUSION: No acute cardiopulmonary findings. Electronically signed by: Chris Glass MD 12/23/2017 1:56 PM EDT
[2017-12-23 13:58] LABS: INR 1.2 Ratio; Prothrombin Time 11.7 sec (9.8-11.6)
[2017-12-23 14:05] LABS: Alanine Aminotransferase 82 U/L (10-53); Albumin 3.6 g/dL (3.4-5.0); Alkaline Phosphatase 102 U/L (45-117); Anion Gap 11 meq/L (5-15); Aspartate Aminotransferase 193 U/L (15-37); Blood Urea Nitrogen 14 mg/dL (7-18); Carbon Dioxide 24.7 meq/L (21.0-32.0); Chloride 104 meq/L (98-107); Glomerular Filtration Rate Greater Than 89 mL/min (>89); Glucose,Random 77 mg/dL (74-106); Lipase 52 U/L (73-393); Magnesium 1.4 mg/dL (1.5-2.5); Potassium 3.5 meq/L (3.5-5.1); Sodium 140 meq/L (136-145)
[2017-12-23] MEDS ORDERED: Acetaminophen 325 MG Tablet PO ONE (14:25)
[2017-12-23] MEDS ORDERED: Sod Chloride 0.9% Inj 1,000 ML IV.SIG SCH (14:30)
[2017-12-23] MEDS ORDERED: Bisacodyl 10 MG Supp RECTAL PRN (15:00)
[2017-12-23] MEDS ORDERED: Acetaminophen 325 MG Tablet PO PRN (15:00)
[2017-12-23] MEDS ORDERED: Haloperidol Inj 5 MG/ML Ampul IV.PUSH PRN (15:03)
[2017-12-23] MEDS ORDERED: Magnesium Oxide 400 MG Tablet PO ONE (15:06)
--- NOTE | 2017-12-23 15:20 | P.HPIM ---
History of Present Illness Primary Care Physician: Pattie Wong Chief Complaint: chest pain History of Present Illness: 42-year-old female with h/o tobaccoism, EtOH use, pancreatitis, colitis, anxiety presents to the emergency department for evaluation of chest pain that woke her up this morning. Patient states that the pain is substernal without radiation. She describes it as "sharp and strong", 5/10 in intensity, substernal, nonradiating. She feels as if she was "punched in the chest". She says taking a deep breath and activity increases her pain. Chest pain is reproducible by palpation. No alleviating factors. Says she has associated, occasional shortness of breath. She is sattign well on room air. She denies history of DVT/PE, immobilization, fractures, surgeries. She says she has anxiety but this does not feel like an anxiety attack. She also states she smokes tobacco and drinks alcohol regularly. Evac states she was given ASA 325mg PO. She denies chronic medical issues or medication use. She states that she drinks alcohol daily and does go through withdrawals if she does not drink alcohol. Review of Systems All other systems reviewed negative except as stated in HPI PMFSH - History History Provided By: Patient - Medical History Medical History: Medical History (Last Reviewed 12/24/17 @ 13:44 by Fartun Rosa MD) Colitis Pancreatitis Anxiety - Surgical History Surgical History: Surgical History (Last Reviewed 12/24/17 @ 13:44 by Fartun Rosa MD) No history of previous surgery - Family History Family History: Family History (Last Reviewed 12/24/17 @ 13:44 by Fartun Rosa MD) Other Hypertension - Social History I have reviewed the patient's Social History: Yes - Tobacco History Tobacco Use In Past 30 Days: Yes Smoking Status: Current every day smoker Tobacco Type: Cigarettes - Alcohol History How Often Do You Have a Drink Containing Alcohol: 2 to 4 times a month - Substance Use History Substance History: No History of Abuse - Travel History Recent Travel in the [place] Within the Last 8 Weeks: No Recent Travel Out of the Country Within the Last 8 Weeks: No - Immunization History Tetanus Immunization: Unsure Medications and Allergies Active Medications: Active Medications Al Hydroxide/Mg Hydroxide (Milk Of Magnesia Liq) 30 ml PO Q12H PRN PRN Reason: Mild Constipation Bisacodyl (Dulcolax Supp) 10 mg RECTAL DAILY PRN PRN Reason: SEVERE CONSITIPATION Enoxaparin Sodium (Lovenox Inj) 40 mg SQ Q24H [facility] Famotidine (Pepcid) 20 mg PO BID [facility] Flumazenil (Romazecon Inj) 0.2 mg IV.PUSH Q1M PRN PRN Reason: OVERSEDATION Folic Acid (Folic Acid) 1 mg PO DAILY [facility] Stop: 12/28/17 15:14 Haloperidol Lactate (Haldol Inj) 1 mg IV.PUSH Q15M PRN PRN Reason: for severe agitation Sodium Chloride (Ns Inj) 1,000 mls @ 0 mls/hr IV.SIG BOLUS WILLIS Sodium Chloride (Ns Inj) 1,000 mls @ 100 mls/hr IV.CONT .Q10H [facility] Lactulose (Lactulose Liq) 30 ml PO DAILY PRN PRN Reason: SEVERE CONSITIPATION Lorazepam (Ativan) 1 mg PO Q4H PRN PRN Reason: for CIWA 8-10 Lorazepam (Ativan Inj) 2 mg IV.PUSH Q2H PRN PRN Reason: for CIWA 11-14 Lorazepam (Ativan Inj) 2 mg IV.PUSH Q1H PRN PRN Reason: for CIWA 15-20 Lorazepam (Ativan Inj) 2 mg IV.PUSH Q15M PRN PRN Reason: for CIWA > 20 Lorazepam (Ativan Inj) 1 mg IV.PUSH Q4H PRN PRN Reason: for CIWA 8-10 Lorazepam (Ativan) 2 mg PO Q2H PRN PRN Reason: for CIWA 11-14 Magnesium Oxide (Mag-Ox) 400 mg PO ONCE ONE Stop: 12/23/17 15:07 Multivitamins/Minerals (Theragran-M) 1 tab PO DAILY [facility] Stop: 12/28/17 15:14 Ondansetron HCl (Zofran Inj) 4 mg IV.PUSH Q6H PRN PRN Reason: NAUSEA OR VOMITING Senna/Docusate Sodium (Danika-Colace) 1 tab PO BID [facility] Sennosides (Senokot) 17.2 mg PO Q12H PRN PRN Reason: Moderate Constipation Sodium Chloride (Ns Flush) 2 ml IV.FLUSH UNSCH PRN PRN Reason: FLUSH AFTER USING IV ACCESS Thiamine HCl (Vitamin B1) 100 mg PO DAILY [facility] Allergies Allergy/AdvReac Type Severity Reaction Status Date / Time No Known Allergies Allergy Verified 12/23/17 13:08 Home Medications Medication Instructions Recorded Confirmed Type No Known Home Medications 12/23/17 12/23/17 History Exam Vital signs: Vital Signs 12/23/17 12:58 12/23/17 13:03 12/23/17 13:17 Temperature 98.5 F Pulse Rate 107 H 116 H 106 H Respiratory Rate 20 20 18 Blood Pressure 161/108 H 169/102 H 164/102 H Pulse Oximetry 98 98 98 Intake & Output 12/22/17 12/23/17 12/23/17 18:59 06:59 18:59 Weight 125 kg Narrative: GENERAL: Pleasant 42 yo F, morbidly obese in nad. SKIN: Warm and dry. HEAD: Atraumatic. Normocephalic. EYES: Pupils equal and round. No scleral icterus. No injection or drainage. ENT: No nasal bleeding or discharge. Mucous membranes pink and moist. NECK: Trachea midline. No JVD. CARDIOVASCULAR: Regular rate and rhythm. Left chest wall pain reproducible by palpation. RESPIRATORY: No accessory muscle use. Clear to auscultation. Breath sounds equal bilaterally. GASTROINTESTINAL: Abdomen soft, non-tender, nondistended. Hepatic and splenic margins not palpable. MUSCULOSKELETAL: Extremities without clubbing, cyanosis, or edema. No obvious deformities. NEUROLOGICAL: Awake and alert. No obvious cranial nerve deficits. Motor grossly within normal limits. Five out of 5 muscle strength in the arms and legs. Normal speech. PSYCHIATRIC: Appropriate mood and affect; insight and judgment normal. Results - Labs CBC & Chem 7: 12/24/17 08:12 12/24/17 08:12 Labs: Short CBC 12/23/17 Range/Units 13:34 WBC 5.4 (4.0-11.0) th/mm3 Hgb 13.4 (11.6-15.3) gm/dL Hct 39.0 (35.0-46.0) % Plt Count 349 (150-450) th/mm3 BMP 12/23/17 13:34 Sodium 140 Potassium 3.5 Chloride 104 Carbon Dioxide 24.7 BUN 14 Creatinine 0.53 Calcium 8.0 L Cardiac Enzymes 12/23/17 Range/Units 13:34 Troponin I Less than 0.02 L (0.02-0.05) ng/mL Liver Function 12/23/17 Range/Units 13:34 Total Bilirubin 0.5 (0.2-1.0) mg/dL AST 193 H (15-37) U/L ALT 82 H (10-53) U/L Alkaline Phosphatase 102 (45-117) U/L Albumin 3.6 (3.4-5.0) g/dL - Imaging Impressions Chest X-Ray 12/23/17 13:17 CONCLUSION: No acute cardiopulmonary findings. Caprini VTE Risk Assessment Caprini VTE Risk Assessment: Moderate/High Risk (score >= 2) Caprini Risk Assessment Model: Point Value = 1 Point Value = 2 Point Value = 3 Point Value = 5 Age 41-60 Minor surgery BMI > 25 kg/m2 Swollen legs Varicose veins or History of unexplained or recurrent spontaneous Oral contraceptives or hormone replacement Sepsis (< 1 month) Serious lung disease, including pneumonia (< 1 month) Abnormal pulmonary function Acute myocardial infarction Congestive heart failure (< 1 month) History of inflammatory bowel disease Medical patient at bed rest Age 61-74 Arthroscopic surgery Major open surgery (> 45 min) Laparoscopic surgery (> 45 min) Malignancy Confined to bed (> 72 hours) Immobilizing plaster cast Central venous access Age >= 75 History of VTE Family history of VTE Factor V Leiden Prothrombin [id number] Lupus anticoagulant Anticardiolipin antibodies Elevated serum homocysteine Heparin-induced thrombocytopenia Other congenital or acquired thrombophilia Stroke (< 1 month) Elective arthroplasty Hip, pelvis, or leg fracture Acute spinal cord injury (< 1 month) Prophylaxis Regimen: Total Risk Factor Score Risk Level Prophylaxis Regimen 0-1 Low Early ambulation 2 Moderate Order ONE of the following: *Sequential Compression Device (SCD) *Heparin 5000 units SQ BID 3-4 Higher Order ONE of the following medications: *Heparin 5000 units SQ TID *Enoxaparin/Lovenox 40 mg SQ daily (WT < 150 kg, CrCl > 30 mL/min) *Enoxaparin/Lovenox 30 mg SQ daily (WT < 150 kg, CrCl > 10-29 mL/min) *Enoxaparin/Lovenox 30 mg SQ BID (WT < 150 kg, CrCl > 30 mL/min) AND/OR *Sequential Compression Device (SCD) 5 or more Highest Order ONE of the following medications: *Heparin 5000 units SQ TID (Preferred with Epidurals) *Enoxaparin/Lovenox 40 mg SQ daily (WT < 150 kg, CrCl > 30 mL/min) *Enoxaparin/Lovenox 30 mg SQ daily (WT < 150 kg, CrCl > 10-29 mL/min) *Enoxaparin/Lovenox 30 mg SQ BID (WT < 150 kg, CrCl > 30 mL/min) AND *Sequential Compression Device (SCD) Assessment and Plan - Plan 42-year-old female with h/o tobaccoism, EtOH use, pancreatitis, colitis, anxiety presents to the emergency department for evaluation of chest pain, and associated sob: Atypical Chest pain r/o ACS. Note patient reports cp with inspiration Transaminitis with EtOH pattern Hypomagnesemia EtOH use monitor for withdrawal symptoms. H/o pancreatitis, lipase on admissions is normal Tobaccoism Anxiety Morbid obesity with BMI of 53.8 CXR reviewed: No acute cardiopulmonary findings. d-dimer neg , low prob PE Initial trop neg EKG reviewed no ischemic changes. Trend trops and repeat EKG. Monitor on telemetry Nitro paste applied Received small dose of Tylenol in ED to help reduce change of headache. Avoid tylenol as patient with transaminitis Started on CIWA protocol. Monitor closely for withdrawal symptoms. Tyamine/ folate/MVT IVF Low Mag replaced. Monitor electrolytes and replace as need. Counselled regarding diet and exercise. Counselled regarding EtOH use and tobacco use. DVT ppx scd/teds Discussed Condition With: patient, nurse, ED ELHAM Del Real
[2017-12-23] MEDS: Folic Acid 1 MG Tablet PO SCH (17:55)
[2017-12-23] MEDS: Enoxaparin Inj 40 MG/0.4 ML Syringe SQ SCH (17:56)
[2017-12-23] MEDS: Sod Chloride 0.9% Inj 1,000 ML IV.CONT SCH (17:56)
[2017-12-23] MEDS: Multivitamin/Minerals Therapeutic Tablet PO SCH (19:53)
[2017-12-23] MEDS ORDERED: Morphine Sulfate Inj 2 MG/ML Vial IV.PUSH ONE (20:04)
[2017-12-23] MEDS: Senna/Docusate Sodium 8.6/50 MG Tablet PO SCH (20:32)
[2017-12-23] MEDS: Famotidine 20 MG Tablet PO SCH (20:38)
[2017-12-23 20:46] LABS: Amphetamine Screen,Urine Neg (Neg); Barbiturate Screen,Urine Neg (Neg); Cannabinoid Screen,Urine Neg (Neg); Cocaine Screen,Urine Neg (Neg)
[2017-12-23 21:15] LABS: Opiate Screen,Urine Neg (Neg)
[2017-12-24] MEDS: Sod Chloride 0.9% Inj 1,000 ML IV.CONT SCH ×2 (04:01→17:36)
[2017-12-24] MEDS: LORazepam 1 MG Tablet PO PRN ×2 (04:01→22:38)
[2017-12-24 09:17] LABS: Baso % (Auto) 0.8 % (0.0-2.0); Eos # (Auto) 0.1 th/mm3 (0.0-0.4); Eos % (Auto) 1.2 % (0.0-4.0); Hematocrit 35.5 % (35.0-46.0); Hemoglobin 12.2 gm/dL (11.6-15.3); Lymph # (Auto) 1.5 th/mm3 (1.0-4.8); Lymph % (Auto) 31.3 % (9.0-44.0); Mean Corpuscular HGB Conc 34.4 % (32.0-36.0); Mean Corpuscular Hemoglobin 36.4 pg (27.0-34.0); Mean Corpuscular Volume 105.8 fL (80.0-100.0); Mean Platelet Volume 7.2 fL (7.0-11.0); Mono # (Auto) 0.5 th/mm3 (0.0-0.9); Mono % (Auto) 9.6 % (0.0-8.0); Neut # (Auto) 2.8 th/mm3 (1.8-7.7); Neut % (Auto) 57.1 % (16.0-70.0); Platelet Count 253 th/mm3 (150-450); Red Blood Count 3.36 mil/mm3 (4.00-5.30); Red Cell Distribution Width 14.7 % (11.6-17.2); White Blood Count 4.9 th/mm3 (4.0-11.0)
[2017-12-24 09:35] LABS: Albumin 3.2 g/dL (3.4-5.0); Anion Gap 9 meq/L (5-15); Aspartate Aminotransferase 102 U/L (15-37); Blood Urea Nitrogen 6 mg/dL (7-18); Carbon Dioxide 23.8 meq/L (21.0-32.0); Chloride 106 meq/L (98-107); Glomerular Filtration Rate Greater Than 89 mL/min (>89); Glucose,Random 88 mg/dL (74-106); Magnesium 1.5 mg/dL (1.5-2.5); Sodium 139 meq/L (136-145)
[2017-12-24 09:42] LABS: Alanine Aminotransferase 55 U/L (10-53); Alkaline Phosphatase 87 U/L (45-117); Total Protein 6.3 g/dL (6.4-8.2)
[2017-12-24] MEDS: Senna/Docusate Sodium 8.6/50 MG Tablet PO SCH ×2 (10:30→21:26)
[2017-12-24] MEDS: Multivitamin/Minerals Therapeutic Tablet PO SCH (10:32)
[2017-12-24] MEDS: Folic Acid 1 MG Tablet PO SCH (10:33)
[2017-12-24] MEDS: Famotidine 20 MG Tablet PO SCH ×2 (10:33→21:26)
[2017-12-24] MEDS ORDERED: Calcium Gluconate Inj 1 GM in Sodium Chlor 0.9% Inj 100 ML IV.SIG ONE ×4 (10:40→18:00)
--- NOTE | 2017-12-24 11:02 | P.PN ---
Subjective Interval history: Chest pain is reproducible by palpation and patient works at [employer] Patient says she feels improved somehow today Some nausea but no vomiting Chest pain imprpving No palpitations No fever or chills. No diarrhea. Not eating much Physical Exam Vital signs: Vital Signs 12/23/17 12:58 12/23/17 13:03 12/23/17 13:17 Temperature 98.5 F Pulse Rate 107 H 116 H 106 H Respiratory Rate 20 20 18 Blood Pressure 161/108 H 169/102 H 164/102 H Pulse Oximetry 98 98 98 12/23/17 15:40 12/23/17 18:59 12/23/17 19:59 Temperature 98.0 F Pulse Rate 98 H 94 H Respiratory Rate 18 18 Blood Pressure 169/98 H 170/103 H Pulse Oximetry 98 95 95 12/23/17 20:00 12/23/17 20:06 12/23/17 23:47 Temperature 98.8 F 98.5 F Pulse Rate 97 H 94 H Respiratory Rate 18 18 18 Blood Pressure 182/108 H 154/94 H Pulse Oximetry 97 94 L 97 12/24/17 00:35 12/24/17 03:56 12/24/17 04:09 Temperature 98.5 F Pulse Rate 78 73 69 Respiratory Rate 18 Blood Pressure 171/96 H Pulse Oximetry 98 12/24/17 08:00 Temperature 98.3 F Pulse Rate 76 Respiratory Rate 18 Blood Pressure 158/87 H Pulse Oximetry 96 Intake & Output 12/23/17 12/24/17 12/24/17 18:59 06:59 18:59 Intake Total 1600 / 1600 1000 / 1000 720 / 720 Balance 1600 / 1600 1000 / 1000 720 / 720 Weight 125 kg 58.06 kg Intake: IV 1000 / 1000 1000 / 1000 NS Inj 1,000 ML @ 100 mls/hr IV 1000 / 1000 .CONT .Q10H WILLIS Rx#:[id number] NS Inj 1,000 ML @ Wide Open IV. 1000 / 1000 SIG BOLUS WILLIS Rx#:[id number] Oral 600 / 600 720 / 720 Other: Date of Last Bowel Movement 12/23/17 Weight On Admission 56.699 kg Narrative: GENERAL: Pleasant 42 yo F, morbidly obese in nad. CARDIOVASCULAR: Regular rate and rhythm. Left chest wall pain reproducible by palpation, improved. RESPIRATORY: No accessory muscle use. Clear to auscultation. Breath sounds equal bilaterally. GASTROINTESTINAL: Abdomen soft, non-tender, nondistended. Hepatic and splenic margins not palpable. MUSCULOSKELETAL: Extremities without clubbing, cyanosis, or edema. No obvious deformities. NEUROLOGICAL: Awake and alert. No obvious cranial nerve deficits. Motor grossly within normal limits. Five out of 5 muscle strength in the arms and legs. Normal speech. PSYCHIATRIC: Appropriate mood and affect; insight and judgment normal. Results - Labs CBC & Chem 7: 12/24/17 08:12 12/24/17 08:12 Laboratory Results - last 24 hr 12/23/17 12/23/17 12/23/17 13:34 13:34 13:34 WBC 5.4 RBC 3.73 L Hgb 13.4 Hct 39.0 MCV 104.5 H MCH 36.0 H MCHC 34.4 RDW 14.8 Plt Count 349 MPV 7.0 Neut % (Auto) 60.6 Lymph % (Auto) 28.3 [place] % (Auto) 8.7 H Eos % (Auto) 1.1 Baso % (Auto) 1.3 Neut # (Auto) 3.2 Lymph # (Auto) 1.5 [place] # (Auto) 0.5 Eos # (Auto) 0.1 Baso # (Auto) 0.1 WBC Differential . Differential Comment Auto diff final PT INR APTT D-Dimer Quant (PE/DVT) 0.20 Sodium 140 Potassium 3.5 Chloride 104 Carbon Dioxide 24.7 Anion Gap 11 BUN 14 Creatinine 0.53 Estimated GFR Greater than 89 POC Glucose Random Glucose 77 Calcium 8.0 L Prot Corrected Calcium Magnesium 1.4 L Total Bilirubin 0.5 AST 193 H ALT 82 H Alkaline Phosphatase 102 Troponin I Less than 0.02 L Total Protein 7.0 Albumin 3.6 Lipase 52 L Urine Opiates Screen Ur Barbiturates Screen Ur Amphetamines Screen U Benzodiazepines Scrn Urine Cocaine Screen U Cannabinoids Screen 12/23/17 12/23/17 12/23/17 13:34 13:34 17:00 WBC RBC Hgb Hct MCV MCH MCHC RDW Plt Count MPV Neut % (Auto) Lymph % (Auto) [place] % (Auto) Eos % (Auto) Baso % (Auto) Neut # (Auto) Lymph # (Auto) [place] # (Auto) Eos # (Auto) Baso # (Auto) WBC Differential Differential Comment PT 11.7 H INR 1.2 APTT 26.0 D-Dimer Quant (PE/DVT) Sodium Potassium Chloride Carbon Dioxide Anion Gap BUN Creatinine Estimated GFR POC Glucose Random Glucose Calcium Prot Corrected Calcium Magnesium Cancelled Total Bilirubin AST ALT Alkaline Phosphatase Troponin I Total Protein Albumin Lipase Urine Opiates Screen Neg Ur Barbiturates Screen Neg Ur Amphetamines Screen Neg U Benzodiazepines Scrn Neg Urine Cocaine Screen Neg U Cannabinoids Screen Neg 12/23/17 12/24/17 12/24/17 19:26 03:10 07:55 WBC RBC Hgb Hct MCV MCH MCHC RDW Plt Count MPV Neut % (Auto) Lymph % (Auto) [place] % (Auto) Eos % (Auto) Baso % (Auto) Neut # (Auto) Lymph # (Auto) [place] # (Auto) Eos # (Auto) Baso # (Auto) WBC Differential Differential Comment PT INR APTT D-Dimer Quant (PE/DVT) Sodium Potassium Chloride Carbon Dioxide Anion Gap BUN Creatinine Estimated GFR POC Glucose 91 Random Glucose Calcium Prot Corrected Calcium Magnesium Total Bilirubin AST ALT Alkaline Phosphatase Troponin I Less than 0.02 L Less than 0.02 L Total Protein Albumin Lipase Urine Opiates Screen Ur Barbiturates Screen Ur Amphetamines Screen U Benzodiazepines Scrn Urine Cocaine Screen U Cannabinoids Screen 12/24/17 12/24/17 08:12 08:12 WBC 4.9 RBC 3.36 L Hgb 12.2 Hct 35.5 MCV 105.8 H MCH 36.4 H MCHC 34.4 RDW 14.7 Plt Count 253 MPV 7.2 Neut % (Auto) 57.1 Lymph % (Auto) 31.3 [place] % (Auto) 9.6 H Eos % (Auto) 1.2 Baso % (Auto) 0.8 Neut # (Auto) 2.8 Lymph # (Auto) 1.5 [place] # (Auto) 0.5 Eos # (Auto) 0.1 Baso # (Auto) 0.0 WBC Differential . Differential Comment Auto diff final PT INR APTT D-Dimer Quant (PE/DVT) Sodium 139 Potassium 3.0 L Chloride 106 Carbon Dioxide 23.8 Anion Gap 9 BUN 6 L Creatinine 0.40 L Estimated GFR Greater than 89 POC Glucose Random Glucose 88 Calcium 7.0 L* D Prot Corrected Calcium 7.4 L* Magnesium 1.5 Total Bilirubin 1.3 H AST 102 H ALT 55 H Alkaline Phosphatase 87 Troponin I Total Protein 6.3 L D Albumin 3.2 L Lipase Urine Opiates Screen Ur Barbiturates Screen Ur Amphetamines Screen U Benzodiazepines Scrn Urine Cocaine Screen U Cannabinoids Screen - Imaging Impressions Chest X-Ray 12/23/17 13:17 CONCLUSION: No acute cardiopulmonary findings. Assessment and Plan - Plan 42-year-old female with h/o tobaccoism, EtOH use, pancreatitis, colitis, anxiety presents to the emergency department for evaluation of chest pain, and associated sob: Atypical Chest pain r/o ACS. Note patient reports cp with inspiration Transaminitis with EtOH pattern EtOH use monitor for withdrawal symptoms. H/o pancreatitis, lipase on admissions is normal Tobaccoism Anxiety Hypocalcemia Hypokalemia Hypomagnesemia CXR reviewed: No acute cardiopulmonary findings. d-dimer neg , low prob PE Initial trop neg EKG reviewed no ischemic changes. Trend trops and repeat EKG. Monitor on telemetry Nitro paste applied Received small dose of Tylenol in ED to help reduce change of headache. Avoid tylenol as patient with transaminitis Started on CIWA protocol. Monitor closely for withdrawal symptoms. Tyamine/ folate/MVT IVF Low Mag replaced. Monitor electrolytes and replace as need. Counselled regarding EtOH use and tobacco use. Low prot. corrected Ca. Give Ca gluconate IV, monitor Ca level. Start calcium carbonate supplement. DVT ppx scd/teds
[2017-12-24] MEDS: Mag Sulf 1 gm/100 ml Premix 100 ML IV.SIG SCH ×2 (12:29→13:38)
[2017-12-24] MEDS: Magnesium Oxide 400 MG Tablet PO SCH (13:18)
--- NOTE | 2017-12-24 15:08 | ECG ---
Date Performed: 12/23/2017 Time Performed: 21:16:00 PTAGE: 42 years EKG: Sinus rhythm Since the previous tracing, no significant change noted NORMAL ECG NO PREVIOUS TRACING DOCTOR: Tulio Lerner Interpretating Date/Time 12/24/2017 14:56:01
--- NOTE | 2017-12-24 15:09 | ECG ---
Date Performed: 12/23/2017 Time Performed: 13:04:57 PTAGE: 42 years EKG: SINUS TACHYCARDIA Since the previous tracing, no significant change noted ABNORMAL RHYTHM E CG NO PREVIOUS TRACING DOCTOR: Tulio Lerner Interpretating Date/Time 12/24/2017 14:56:08
[2017-12-24] MEDS: Potassium Chlor 20 mEq Premix 20 MEQ/100 ML PIGGYBACK IV.SIG SCH ×2 (15:15→17:16)
[2017-12-24] MEDS: Enoxaparin Inj 40 MG/0.4 ML Syringe SQ SCH (15:26)
[2017-12-25] MEDS: Folic Acid 1 MG Tablet PO SCH (08:08)
[2017-12-25] MEDS: Senna/Docusate Sodium 8.6/50 MG Tablet PO SCH (08:08)
[2017-12-25] MEDS: Magnesium Oxide 400 MG Tablet PO SCH (08:08)
[2017-12-25] MEDS: Multivitamin/Minerals Therapeutic Tablet PO SCH (08:09)
[2017-12-25] MEDS: LORazepam 1 MG Tablet PO PRN (08:09)
[2017-12-25] MEDS: Famotidine 20 MG Tablet PO SCH (08:09)
[2017-12-25 08:42] LABS: Anion Gap 7 meq/L (5-15); Blood Urea Nitrogen 5 mg/dL (7-18); Calcium 7.9 mg/dL (8.5-10.1); Carbon Dioxide 25.2 meq/L (21.0-32.0); Chloride 109 meq/L (98-107); Glomerular Filtration Rate Greater Than 89 mL/min (>89); Glucose,Random 98 mg/dL (74-106); Potassium 3.9 meq/L (3.5-5.1); Sodium 141 meq/L (136-145)
--- NOTE | 2017-12-25 08:56 | P.DS ---
Date of admission: 12/23/17 15:11 Primary care physician: Pattie Wong Brief History from admission: 42-year-old female with h/o tobaccoism, EtOH use, pancreatitis, colitis, anxiety presents to the emergency department for evaluation of chest pain that woke her up this morning. Patient states that the pain is substernal without radiation. She describes it as "sharp and strong", 5/10 in intensity, substernal, nonradiating. She feels as if she was "punched in the chest". She says taking a deep breath and activity increases her pain. Chest pain is reproducible by palpation. No alleviating factors. Says she has associated, occasional shortness of breath. She is sattign well on room air. She denies history of DVT/PE, immobilization, fractures, surgeries. She says she has anxiety but this does not feel like an anxiety attack. She also states she smokes tobacco and drinks alcohol regularly. Evac states she was given ASA 325mg PO. She denies chronic medical issues or medication use. She states that she drinks alcohol daily and does go through withdrawals if she does not drink alcohol. DS: Diagnosis - Discharge Diagnosis (1) Atypical chest pain Status: Acute DS: Medications - Discharge Medications Prescriptions: folic acid 1 mg PO DAILY #30 tab [id number]-calcium-mins [Thera M Plus (ferrous fumarat)] 1 tab PO DAILY # 30 tab thiamine HCl (vitamin B1) 100 mg PO DAILY #30 tab DS: Summary Hospital Course: 42-year-old female with h/o tobaccoism, EtOH use, pancreatitis, colitis, anxiety presents to the emergency department for evaluation of chest pain, and associated sob: Atypical Chest pain r/o ACS. Note patient reports cp with inspiration and with palpation, trops neg, no EKG changes and negative cardiac history. Patient works at [employer]. Transaminitis with EtOH pattern, liver function test improved significantly. EtOH use monitor for withdrawal symptoms. H/o pancreatitis, lipase on admissions is normal Tobaccoism Anxiety Hypocalcemia, resolved Hypokalemia, resolved Hypomagnesemia, resolved CXR reviewed: No acute cardiopulmonary findings. d-dimer neg , low prob PE Trop neg and pain is reproducible by palpation EKG reviewed no ischemic changes. Nitro paste DCd Received small dose of Tylenol in ED to help reduce change of headache. Avoid tylenol as patient with transaminitis Started on CIWA protocol, however no withdrawals. Monitor closely for withdrawal symptoms. Tyamine/folate/MVT Received IVF , tolerates PO , encouraged pO intake Low Mag replaced and back to normal. Monitor electrolytes and replace as need. Counselled regarding EtOH use and tobacco use. Low prot corrected Ca. Received Ca gluconate IV, monitor Ca level. Received calcium carbonate supplement. Resolved. Patient improved, DC home stable condition to follow up as OP with PCP and consultants - Time Spent with Patient Total time spent providing and/or coordinating discharge services: Greater than 30 minutes - Quality: VTE Deep Vein Thrombosis/Pulmonary Embolism Present on Admission: No Exam Vital signs: Vital Signs 12/24/17 12:00 12/24/17 16:00 12/24/17 18:38 Temperature 98.5 F 98.6 F Pulse Rate 89 81 Respiratory Rate 20 20 Blood Pressure 144/97 H 148/99 H Pulse Oximetry 94 L 97 97 12/24/17 20:00 12/24/17 23:03 12/25/17 04:00 Temperature 98.4 F 98.3 F Pulse Rate 86 81 75 Respiratory Rate 18 18 Blood Pressure 149/78 H 139/92 H Pulse Oximetry 99 99 12/25/17 08:00 12/25/17 08:34 Temperature 98.0 F Pulse Rate 75 Respiratory Rate 16 Blood Pressure 182/112 H Pulse Oximetry 98 100 Intake & Output 12/24/17 12/25/17 12/25/17 18:59 06:59 18:59 Intake Total 2500 / 2500 710 / 710 500 / 500 Balance 2500 / 2500 710 / 710 500 / 500 Intake: IV 300 / 300 710 / 710 500 / 500 NS + KCl 20 mEq Inj 1,000 ML @ 500 / 500 500 / 500 84 mls/hr IV.CONT .[id number] [facility] Rx#:[id number] NS Inj 1,000 ML @ 100 mls/hr IV 0 / 0 .CONT .Q10H [facility] Rx#:[id number] Calcium Gluconate Inj 1 GM In 110 / 110 NS Inj 100 ML @ 110 mls/hr IV. SIG ONCE ONE Rx#:[id number] Magnesium Sulfate 1 gm/D5W 100 200 / 200 ml Premix 100 ML @ 100 mls/hr IV.SIG Q1H [facility] Rx#:[id number] KCl 20 mEq Premix Inj 20 meq In 100 / 100 100 / 100 100 ml @ 50 mls/hr IV.SIG Q2H [facility] Rx#:[id number] Oral 2199 / 2199 Other: # Voids 4 Date of Last Bowel Movement 12/24/17 12/25/17 # Bowel Movements 3 Narrative: GENERAL: Pleasant 42 yo F, in nad. CARDIOVASCULAR: Regular rate and rhythm. Left chest wall pain reproducible by palpation, improved. RESPIRATORY: No accessory muscle use. Clear to auscultation. Breath sounds equal bilaterally. GASTROINTESTINAL: Abdomen soft, non-tender, nondistended. Hepatic and splenic margins not palpable. MUSCULOSKELETAL: Extremities without clubbing, cyanosis, or edema. No obvious deformities. NEUROLOGICAL: Awake and alert. No obvious cranial nerve deficits. Motor grossly within normal limits. Five out of 5 muscle strength in the arms and legs. Normal speech. PSYCHIATRIC: Appropriate mood and affect; insight and judgment normal. Results Procedures completed during hospitalization: no procedures Labs on day of discharge: Labs from last 24 hours 12/25/17 12/25/17 12/24/17 07:48 07:46 17:51 WBC RBC Hgb Hct MCV MCH MCHC RDW Plt Count MPV Neut % (Auto) Lymph % (Auto) [place] % (Auto) Eos % (Auto) Baso % (Auto) Neut # (Auto) Lymph # (Auto) [place] # (Auto) Eos # (Auto) Baso # (Auto) WBC Differential Differential Comment Sodium 141 Potassium 3.9 D Chloride 109 H Carbon Dioxide 25.2 Anion Gap 7 BUN 5 L Creatinine 0.47 L Estimated GFR Greater than 89 POC Glucose 102 111 H Random Glucose 98 Calcium 7.9 L D Prot Corrected Calcium Magnesium 2.0 Total Bilirubin AST ALT Alkaline Phosphatase Total Protein Albumin 12/24/17 12/24/17 12/24/17 13:22 08:12 08:12 WBC 4.9 RBC 3.36 L Hgb 12.2 Hct 35.5 MCV 105.8 H MCH 36.4 H MCHC 34.4 RDW 14.7 Plt Count 253 MPV 7.2 Neut % (Auto) 57.1 Lymph % (Auto) 31.3 [place] % (Auto) 9.6 H Eos % (Auto) 1.2 Baso % (Auto) 0.8 Neut # (Auto) 2.8 Lymph # (Auto) 1.5 [place] # (Auto) 0.5 Eos # (Auto) 0.1 Baso # (Auto) 0.0 WBC Differential . Differential Comment Auto diff final Sodium 139 Potassium 3.0 L Chloride 106 Carbon Dioxide 23.8 Anion Gap 9 BUN 6 L Creatinine 0.40 L Estimated GFR Greater than 89 POC Glucose 138 H Random Glucose 88 Calcium 7.0 L* D Prot Corrected Calcium 7.4 L* Magnesium 1.5 Total Bilirubin 1.3 H AST 102 H ALT 55 H Alkaline Phosphatase 87 Total Protein 6.3 L D Albumin 3.2 L - Impressions ITS Impressions Chest X-Ray 12/23/17 13:17 CONCLUSION: No acute cardiopulmonary findings. Discharge Plan - Discharge Disposition Patient Disposition: Discharge Home - Discharge Condition Condition: Stable - Discharge Order Discharge Orders: Discharge Order (Routine); Ordered 12/25/17 Ordered By: Fartun Rosa - Discharge Details Anticipated Discharge Date: 12/25/17 - Physicians Team Primary Care Provider: Pattie Wong Attending Provider: Fartun Rosa
== END 2017-12-25 11:36 | disposition home or self-care (01) ==
LOC: NEPC 12:55 → NEDA 12:55 → NEPHCDU 16:01
PROVIDERS: ADMIT Hospitalist; ATTEND Hospitalist